=== PATIENT | male | born 1960 | race Caucasian/White ===

== ENCOUNTER 2016-12-19 15:52 | Inpatient (IN) | payer MEDICARE, OTHER ==
--- NOTE | 2016-12-19 15:54 | ED Physician Chart ---
Chief Complaint/HPI - Patient Information Date Seen:: 12/19/16 Time Seen:: 15:54 Chief Complaint:: agitation History of Present Illness:: 56-year-old male brought in by ambulance from care facility with acute, constant , worsening, severe, agitation with associated aggressive behavior towards staff 1.5 days. Limited history as patient has psychological disability and is uncooperative History of provided by EMS and EMS run sheet Historian:: EMS Review:: Nurse's Note Reviewed, EMS run form Reviewed Review of Systems - Review of Systems Other: Complete system review otherwise unremarkable except as noted in history of present illness. Past Medical History - Past Medical History Past Medical History: Other Family History: None Social History: Non Smoker, No Alcohol, No Drug Use, Care Facility Surgical History: None Psychiatricy History: Other (unspecified psychiatric disorder) Medication: Reviewed Family Medical History - Family Member Mother History Unknown: Yes Physical Exam - Physical Examination Other:: INITIAL VITAL SIGNS: Reviewed by me GENERAL: Alert and interactive. No acute distress HEAD: Head is normocephalic and atraumatic EYES: EOMI. PERRL. No scleral icterus. No conjunctival injection ENT: Moist mucous membranes. NECK: Supple. No masses. Full range of motion RESPIRATORY: No tachypnea. Clear breath sounds bilaterally. No wheezing, rales, or rhonchi CV: Regular rate and rhythm. No murmurs, rubs, or gallops ABDOMEN: Soft, non-distended, non-tender. No guarding. No rebound. No masses. EXTREMITIES: No deformity. No cyanosis. No edema. SKIN: Warm and dry. No obvious rashes. NEUROLOGIC: Alert and oriented. Face is symmetric. Speech is normal. Moves all extremities equally. Motor and sensory distally intact. Labs/Radiology/EKG Results - EKG Interpretations Comments:: 12-lead EKG Interpretation by Joseph Dean MD: Sinus bradycardia with ventricular rate of 56 beats per minute Normal axis Normal intervals No acute ST or T wave changes. No obvious STEMI ED Septic Shock - . Is Septic Shock (SBP<90, OR Lactate>4 mmol\L) present?: No Reassessment (Disposition) - Reassessment Reassessment:: The patient is medically cleared for admission to the geriatric psych unit. Reassessment Condition:: Unchanged - Diagnosis Diagnosis:: Acute psychosis, NOS - Patient Disposition Discharge/Transfer:: Acute Care w/in this hosp Admitted to:: [facility] Admitting Medical Physician:: Puja Yanes Admitting Psych Physician:: Les Recio Time:: 17:36 Condition at Disposition:: Improved ED Discharge Plan - Patient Disposition Admit/Discharge/Transfer: Other Care w/in this hosp Condition at Disposition: Stable
[2016-12-19 16:12] LABS: HEMATOCRIT 46.9 % (39.0-49.0); HEMOGLOBIN 15.3 gm/dL (13.2-17.3); MEAN CORPUSCULAR HEMOGLOBIN 34.6 pg (26.0-30.0); MEAN CORPUSCULAR HGB CONC 32.7 pg (28.0-36.0); MEAN PLATELET VOLUME 9.8 fl; PLATELET COUNT 183 Th/cmm (150-400); RED BLOOD COUNT 4.43 Mil/cmm (4.30-5.70); RED CELL DISTRIBUTION WIDTH 13.2 % (11.5-20.0); WHITE BLOOD COUNT 7.2 Th/cmm (4.8-10.8)
[2016-12-19 16:16] LABS: MEAN CELL VOLUME 105.8 fl (80-99)
[2016-12-19 16:30] LABS: ALB/GLOB RATIO 1.4 (1.0-1.8); ALKALINE PHOSPHATASE 81 U/L (34-104); ANION GAP 6.4 (7.0-16.0); BILIRUBIN,TOTAL 0.5 mg/dL (0.3-1.0); BUN - UREA NITROGEN 18 mg/dL (7-25); CALCIUM SERUM 9.5 mg/dL (8.6-10.3); CARBON DIOXIDE 26.7 mEq/L (21.0-31.0); CHLORIDE 109 mEq/L (98-107); CHOLESTEROL 144 mg/dL (<200); GLUCOSE 133 mg/dL (70-105); POTASSIUM SERUM 4.1 mEq/L (3.5-5.1); SGOT 14 U/L (13-39); SGPT/ALT 12 U/L (7-52); SODIUM SERUM 138 mEq/L (136-145); TRIGLYCERIDES 75 mg/dL (<150)
[2016-12-19 16:34] LABS: URINE BILIRUBIN NEGATIVE (NEGATIVE); URINE BLOOD NEGATIVE (NEGATIVE); URINE GLUCOSE (UA) NEGATIVE (NEGATIVE); URINE KETONE NEGATIVE (NEGATIVE); URINE PROTEIN NEGATIVE (NEGATIVE)
[2016-12-19 16:35] LABS: ANISOCYTOSIS 1+; BASOPHIL 1 % (0-3); EOSINOPHIL 7 % (0-5); NEUTROPHILS 43 % (40-80); PLATELET ESTIMATE ADEQUATE (NORMAL); PLATELET MORPHOLOGY NORMAL (NORMAL); TOTAL CELLS COUNTED 100
[2016-12-19 16:36] LABS: ACETAMINOPHEN < 10.0 ug/mL (10.0-30.0)
[2016-12-19 16:39] LABS: URINE BACTERIA NONE SEEN /hpf (NONE SEEN); URINE COLOR YELLOW; URINE EPITHELIAL CELLS NONE SEEN /lpf (FEW); URINE RBC NONE SEEN /hpf (0-5); URINE WBC NONE SEEN /hpf (0-5)
[2016-12-19 16:43] LABS: AMPHETAMINE URINE NEGATIVE (NEGATIVE); BARBITURATES URINE NEGATIVE (NEGATIVE); METHADONE URINE NEGATIVE (NEGATIVE)
[2016-12-19 18:21] VITALS: BP 151/76
[2016-12-19] MEDS ORDERED: Maalox 30 mL Cup PO PRN (19:36)
[2016-12-19] MEDS ORDERED: Magnesium Hydroxide (MOM) 30 mL UDC PO PRN (19:36)
[2016-12-20] MEDS: buPROPion XL 150 mg T 24 H PO SCH (08:40)
[2016-12-20] MEDS: Benztropine 1 MG TAB PO SCH (08:40)
[2016-12-20] MEDS: Multivitamin Tab PO SCH (08:40)
--- NOTE | 2016-12-20 21:17 | History & Physical ---
ADMIT DATE: 12/20/2016 HISTORY OF PRESENT ILLNESS: The patient is a 56-year-old male with long history of chronic smoking, psychosis, dementia, admitted to [facility] under Dr. Recio's service for the treatment. The patient denies any chest pain, shortness of breath, nausea, vomiting, fever, or chills. PAST MEDICAL HISTORY: COPD, psychosis, and dementia. PAST SURGICAL HISTORY: No recent surgery. ALLERGIES: None. MEDICATIONS: Follow admission reconciliation. SOCIAL HISTORY: Chronic smoker. No alcohol and no drug. FAMILY HISTORY: Noncontributory. REVIEW OF SYSTEMS: RENAL SYSTEM: No history of chronic renal disorder. CARDIOVASCULAR SYSTEM: No coronary artery disease. ENDOCRINE SYSTEM: No diabetes or thyroid problem. GASTROINTESTINAL SYSTEM: No upper or lower gastrointestinal bleed. NEUROLOGICAL: He has history of psychosis and dementia. MUSCULOSKELETAL SYSTEM: No muscular dystrophy. HEMATOLOGIC SYSTEM: No bleeding tendencies. RESPIRATORY SYSTEM: History of chronic smoking. GENITOURINARY: No dysuria. No hematuria. PHYSICAL EXAMINATION: GENERAL: He is awake, alert, and mildly confused. VITAL SIGNS: Temperature 97.7, heart rate 63, and blood pressure 105/63. HEENT: Normocephalic. Pupils are reactive and equal to light. Sclerae clear. NECK: Supple. Negative for lymphadenopathy, JVD, or bruit. CHEST: Bilaterally normal. No rales, rhonchi, or wheezing. HEART: S1, S2 normal. No murmur or gallop. ABDOMEN: Soft. Bowel sounds positive. EXTREMITIES: No edema. NEUROLOGIC: He is awake and alert, not fully oriented. No focal motor or sensory deficits. LABORATORY DATA: White blood 7.2, hemoglobin 15.3, hematocrit 46.9, and platelets 183,000. Sodium 138, potassium 4.1, BUN 18, and creatinine . ASSESSMENT: 1. Chronic obstructive pulmonary disease. 2. Dementia. 3. Psychosis. PLAN: The patient was admitted to the hospital under Dr. Recio's service. MEDICAL PROBLEMS TO BE ADDRESSED DURING HOSPITALIZATION: Psychosis and dementia. MEDICAL PROBLEMS TO BE ADDRESSED AT DISCHARGE: Cessation of smoking. The patient is medically stable for activity. Thank you Dr. Recio for asking me see your patient. JOB# [id number]
--- NOTE | 2016-12-21 04:43 | History & Physical ---
ADMIT DATE: 12/19/2016 Case was discussed with staff of the patient, reviewed records. IDENTIFYING INFORMATION: The patient is a 56-year-old male. CHIEF COMPLAINT: No answer. HISTORY OF PRESENT ILLNESS: The patient is referred from the rehabilitation where he has been staying because of agitation and psychosis. The patient himself was a poor historian, unable to tell me the date. He knew he was in the hospital. He is not sure why he is here. He believes he lives ____ care. He denies any current auditory or visual hallucination, any suicidal ideation. No homicidal ideation. He denies substance abuse. PAST PSYCHIATRIC HISTORY: The patient reports that he was hospitalized before, but he was unable to give me details. ALLERGIES: The patient has no known drug allergies. MEDICATIONS: He has been on Lexapro and Depakote and Wellbutrin. FAMILY AND SOCIAL HISTORY: The patient reports he is single, never , no children pain. He denies substance abuse problem. He believes he is here to be checked out. He denies family history psychotic disorder or substance abuse; however, he is a poor historian. MENTAL STATUS EXAMINATION: The patient is appropriately dressed, not very well groomed. His affect is flat. Thoughts are concrete. Speech is coherent, unable to tell me the date, where he is, why he is here. He reports no auditory or visual hallucinations or paranoia. He reports he sleeps well, eats well; however, he is not a reliable historian. He is unable to tell me the [facility] of [facility]. His long and short term memory is poor because of his psychosis. His insight and judgment is impaired. IMPRESSION: AXIS I: Mood disorder, not otherwise specified. MEDICAL DIAGNOSES: Deferred to the medical doctor. His assets, he wants to get help. Negative poor coping skills. INITIAL TREATMENT PLAN: At this point, the patient will be continued with medications. We will do group therapy, milieu therapy, and individual therapy. ESTIMATED LENGTH OF STAY: Three to seven days. DISCHARGE CRITERIA: Decrease in psychosis, agitation. After discharge, outpatient treatment. JOB# [id number]
[2016-12-21] MEDS: buPROPion XL 150 mg T 24 H PO SCH (08:38)
[2016-12-21] MEDS: Multivitamin Tab PO SCH (08:38)
[2016-12-21] MEDS: Benztropine 1 MG TAB PO SCH (08:38)
--- NOTE | 2016-12-21 12:38 | Progress Notes ---
DATE: 12/21/[address] Recio. Case was discussed with staff of the patient, reviewed records. The patient continues to be unpredictable, impulsive, internally preoccupied, pacing the unit. Continues to have poor insight. Unable to make safe plan for self-care. Sleeping well, eating well. No side effects with the medication, no sedation, no nausea. He was started on Risperdal yesterday and we will continue with the patient in group therapy, milieu therapy, adjust medication as needed. PSYCHIATRIC# [id number]
--- NOTE | 2016-12-21 16:44 | Internal Medicine Prog Note ---
Internal Medicine Subjective - Subjective Service Date: 12/21/16 Patient seen and examined:: without staff Patient is:: awake, verbal, interactive, talking Per staff patient has:: no adverse event (HE DENIES ANY PAIN OR SOB.) Internal Medicine Objective - Results Result Diagrams: 12/19/16 16:06 12/19/16 16:06 Recent Labs: Laboratory Last Values WBC 7.2 Th/cmm (4.8-10.8) 12/19/16 16:06 RBC 4.43 Mil/cmm (4.30-5.70) 12/19/16 16:06 Hgb 15.3 gm/dL (13.2-17.3) 12/19/16 16:06 Hct 46.9 % (39.0-49.0) 12/19/16 16:06 MCV 105.8 fl (80-99) H 12/19/16 16:06 MCH 34.6 pg (26.0-30.0) H 12/19/16 16:06 MCHC Differential 32.7 pg (28.0-36.0) 12/19/16 16:06 RDW 13.2 % (11.5-20.0) 12/19/16 16:06 Plt Count 183 Th/cmm (150-400) 12/19/16 16:06 MPV 9.8 fl 12/19/16 16:06 Neutrophils (Manual) 43 % (40-80) 12/19/16 16:06 Lymphocytes 40 % (20-50) 12/19/16 16:06 Monocytes 8 % (2-10) 12/19/16 16:06 Eosinophils 7 % (0-5) H 12/19/16 16:06 Basophils 1 % (0-3) 12/19/16 16:06 Atypical Lymphocytes 1 % 12/19/16 16:06 Platelet Estimate ADEQUATE (NORMAL) 12/19/16 16:06 Platelet Morphology NORMAL (NORMAL) 12/19/16 16:06 Anisocytosis 1+ 12/19/16 16:06 Macrocytosis 1+ 12/19/16 16:06 RBC Morph Micro Appear ABNORMAL (NORMAL) 12/19/16 16:06 Sodium 138 mEq/L (136-145) 12/19/16 16:06 Potassium 4.1 mEq/L (3.5-5.1) 12/19/16 16:06 Chloride 109 mEq/L (98-107) H 12/19/16 16:06 Carbon Dioxide 26.7 mEq/L (21.0-31.0) 12/19/16 16:06 Anion Gap 6.4 (7.0-16.0) L 12/19/16 16:06 BUN 18 mg/dL (7-25) 12/19/16 16:06 Creatinine 1.0 mg/dL (0.7-1.3) 12/19/16 16:06 Est GFR ( Amer) > 60.0 ml/min (>90) 12/19/16 16:06 Est GFR (Non-Af Amer) > 60.0 ml/min 12/19/16 16:06 BUN/Creatinine Ratio 18.0 12/19/16 16:06 Glucose 133 mg/dL (70-105) H 12/19/16 16:06 Calcium 9.5 mg/dL (8.6-10.3) 12/19/16 16:06 Total Bilirubin 0.5 mg/dL (0.3-1.0) 12/19/16 16:06 AST 14 U/L (13-39) 12/19/16 16:06 ALT 12 U/L (7-52) 12/19/16 16:06 Alkaline Phosphatase 81 U/L (34-104) 12/19/16 16:06 Total Protein 6.6 gm/dL (6.0-8.3) 12/19/16 16:06 Albumin 3.8 gm/dL (4.2-5.5) L 12/19/16 16:06 Globulin 2.8 gm/dL 12/19/16 16:06 Albumin/Globulin Ratio 1.4 (1.0-1.8) 12/19/16 16:06 Triglycerides 75 mg/dL (<150) 12/19/16 16:06 Cholesterol 144 mg/dL (<200) 12/19/16 16:06 LDL Cholesterol Direct 96 mg/dL (75-193) 12/19/16 16:06 HDL Cholesterol 42 mg/dL (23-92) 12/19/16 16:06 TSH 0.87 uIU/ml (0.34-5.60) 12/19/16 16:06 Urine Source CLEAN C 12/19/16 16:25 Urine Color YELLOW 12/19/16 16:25 Urine Clarity CLEAR (CLEAR) 12/19/16 16:25 Urine pH 7.0 (4.6 - 8.0) 12/19/16 16:25 Ur Specific [place] 1.010 (1.005-1.030) 12/19/16 16:25 Urine Protein NEGATIVE mg/dL (NEGATIVE) 12/19/16 16:25 Urine Glucose (UA) NEGATIVE mg/dL (NEGATIVE) 12/19/16 16:25 Urine Ketones NEGATIVE mg/dL (NEGATIVE) 12/19/16 16:25 Urine Blood NEGATIVE (NEGATIVE) 12/19/16 16:25 Urine Nitrate NEGATIVE (NEGATIVE) 12/19/16 16:25 Urine Bilirubin NEGATIVE (NEGATIVE) 12/19/16 16:25 Urine Urobilinogen 4.0 E.U./dL (0.2 - 1.0) H 12/19/16 16:25 Ur Leukocyte Esterase NEGATIVE (NEGATIVE) 12/19/16 16:25 Urine RBC NONE SEEN /hpf (0-5) 12/19/16 16:25 Urine WBC NONE SEEN /hpf (0-5) 12/19/16 16:25 Ur Epithelial Cells NONE SEEN /lpf (FEW) 12/19/16 16:25 Urine Bacteria NONE SEEN /hpf (NONE SEEN) 12/19/16 16:25 Salicylates < 25.0 mg/L (30.0-100.0) L 12/19/16 16:06 Urine Opiates Screen NEGATIVE (NEGATIVE) 12/19/16 16:25 Urine Methadone Screen NEGATIVE (NEGATIVE) 12/19/16 16:25 Acetaminophen < 10.0 ug/mL (10.0-30.0) L 12/19/16 16:06 Ur Barbiturates Screen NEGATIVE (NEGATIVE) 12/19/16 16:25 Ur Tricyclics Screen NEGATIVE (NEGATIVE) 12/19/16 16:25 Ur Phencyclidine Scrn NEGATIVE (NEGATIVE) 12/19/16 16:25 Amphetamines Screen NEGATIVE (NEGATIVE) 12/19/16 16:25 U Methamphetamines Scrn NEGATIVE (NEGATIVE) 12/19/16 16:25 U Benzodiazepines Scrn POSITIVE (NEGATIVE) H 12/19/16 16:25 U Cocaine Metab Screen NEGATIVE (NEGATIVE) 12/19/16 16:25 U Cannabinoids Screen NEGATIVE (NEGATIVE) 12/19/16 16:25 Ethyl Alcohol < 10 mg/dL (0-10) 12/19/16 16:06 - Physical Exam Vitals and I&O: Vital Signs Temp 97.8 F 12/21/16 06:41 Pulse 60 12/21/16 10:58 Resp 18 12/21/16 10:58 BP 100/62 12/20/16 20:21 Pulse Ox 94 12/21/16 06:41 Intake & Output 12/20/16 12/21/16 12/21/16 18:59 06:59 18:59 Intake Total 140 Balance 140 Intake: Oral 140 Other: # Voids 3 # Bowel Movements 0 Active Medications: Current Medications Acetaminophen (Tylenol) 650 mg PO Q4HR PRN PRN Reason: Mild Pain / Temp above 100 Stop: 02/17/17 19:35 Al Hydrox/Mg Hydrox/Simethicone (Maalox) 30 ml PO Q4HR PRN PRN Reason: GI DISTRESS Stop: 02/17/17 19:35 Benztropine Mesylate (Cogentin) 1 mg PO DAILY KASSY Stop: 02/18/17 08:59 Last Admin: 12/21/16 08:38 Dose: 1 mg Bupropion HCl (Wellbutrin Xl) 150 mg PO DAILY KASSY PRN Reason: Protocol Stop: 02/18/17 08:59 Last Admin: 12/21/16 08:38 Dose: 150 mg Divalproex Sodium (Depakote Dr) 500 mg PO BID KASSY PRN Reason: Protocol Stop: 02/18/17 08:59 Last Admin: 12/21/16 16:31 Dose: 500 mg Escitalopram Oxalate (Lexapro) 10 mg PO DAILY KASSY PRN Reason: Protocol Stop: 02/18/17 08:59 Last Admin: 12/21/16 08:38 Dose: 10 mg Lorazepam (Ativan) 0.5 mg PO Q4HR PRN; Protocol PRN Reason: Anxiety Stop: 01/18/17 19:35 Magnesium Hydroxide (Milk Of Magnesia) 30 ml PO HS PRN PRN Reason: Constipation Multivitamins/Vitamin C (Theragran) 1 tab PO DAILY KASSY Stop: 02/18/17 08:59 Last Admin: 12/21/16 08:38 Dose: 1 tab Risperidone (Risperdal) 0.25 mg PO BID KASSY PRN Reason: Protocol Stop: 02/18/17 16:59 Last Admin: 12/21/16 16:30 Dose: 0.25 mg Zolpidem Tartrate (Ambien) 5 mg PO HS PRN PRN Reason: Insomnia Stop: 02/17/17 19:35 General: alert HEENT: NC/AT, PERRLA, EOMI, anicteric sclerae, throat clear Neck: Supple, No JVD, No thyromegaly, +2 carotid pulse wo bruit, No LAD Lungs: CTAB Cardiovascular: RRR, Normal S1, Normal S2, without murmur Abdomen: soft, non-tender, non-distended Extremities: clear Neurological: no change, gait stable Internal Medicine Assmt/Plan - Assessment Assessment: 1.COPD 2.DEMENTIA - Plan Plan: CONTIMUE ON CURRENT MEDICATION AND DIET.
[2016-12-22] MEDS: buPROPion XL 150 mg T 24 H PO SCH (08:34)
[2016-12-22] MEDS: Benztropine 1 MG TAB PO SCH (08:34)
[2016-12-22] MEDS: Multivitamin Tab PO SCH (08:34)
--- NOTE | 2016-12-22 20:07 | Internal Medicine Prog Note ---
Internal Medicine Subjective - Subjective Service Date: 12/22/16 Patient seen and examined:: without staff Patient is:: awake, verbal, interactive, talking Per staff patient has:: no adverse event (HE DENIES ANY PAIN OR SOB.) Internal Medicine Objective - Results Result Diagrams: 12/19/16 16:06 12/19/16 16:06 Recent Labs: Laboratory Last Values WBC 7.2 Th/cmm (4.8-10.8) 12/19/16 16:06 RBC 4.43 Mil/cmm (4.30-5.70) 12/19/16 16:06 Hgb 15.3 gm/dL (13.2-17.3) 12/19/16 16:06 Hct 46.9 % (39.0-49.0) 12/19/16 16:06 MCV 105.8 fl (80-99) H 12/19/16 16:06 MCH 34.6 pg (26.0-30.0) H 12/19/16 16:06 MCHC Differential 32.7 pg (28.0-36.0) 12/19/16 16:06 RDW 13.2 % (11.5-20.0) 12/19/16 16:06 Plt Count 183 Th/cmm (150-400) 12/19/16 16:06 MPV 9.8 fl 12/19/16 16:06 Neutrophils (Manual) 43 % (40-80) 12/19/16 16:06 Lymphocytes 40 % (20-50) 12/19/16 16:06 Monocytes 8 % (2-10) 12/19/16 16:06 Eosinophils 7 % (0-5) H 12/19/16 16:06 Basophils 1 % (0-3) 12/19/16 16:06 Atypical Lymphocytes 1 % 12/19/16 16:06 Platelet Estimate ADEQUATE (NORMAL) 12/19/16 16:06 Platelet Morphology NORMAL (NORMAL) 12/19/16 16:06 Anisocytosis 1+ 12/19/16 16:06 Macrocytosis 1+ 12/19/16 16:06 RBC Morph Micro Appear ABNORMAL (NORMAL) 12/19/16 16:06 Sodium 138 mEq/L (136-145) 12/19/16 16:06 Potassium 4.1 mEq/L (3.5-5.1) 12/19/16 16:06 Chloride 109 mEq/L (98-107) H 12/19/16 16:06 Carbon Dioxide 26.7 mEq/L (21.0-31.0) 12/19/16 16:06 Anion Gap 6.4 (7.0-16.0) L 12/19/16 16:06 BUN 18 mg/dL (7-25) 12/19/16 16:06 Creatinine 1.0 mg/dL (0.7-1.3) 12/19/16 16:06 Est GFR ( Amer) > 60.0 ml/min (>90) 12/19/16 16:06 Est GFR (Non-Af Amer) > 60.0 ml/min 12/19/16 16:06 BUN/Creatinine Ratio 18.0 12/19/16 16:06 Glucose 133 mg/dL (70-105) H 12/19/16 16:06 Calcium 9.5 mg/dL (8.6-10.3) 12/19/16 16:06 Total Bilirubin 0.5 mg/dL (0.3-1.0) 12/19/16 16:06 AST 14 U/L (13-39) 12/19/16 16:06 ALT 12 U/L (7-52) 12/19/16 16:06 Alkaline Phosphatase 81 U/L (34-104) 12/19/16 16:06 Total Protein 6.6 gm/dL (6.0-8.3) 12/19/16 16:06 Albumin 3.8 gm/dL (4.2-5.5) L 12/19/16 16:06 Globulin 2.8 gm/dL 12/19/16 16:06 Albumin/Globulin Ratio 1.4 (1.0-1.8) 12/19/16 16:06 Triglycerides 75 mg/dL (<150) 12/19/16 16:06 Cholesterol 144 mg/dL (<200) 12/19/16 16:06 LDL Cholesterol Direct 96 mg/dL (75-193) 12/19/16 16:06 HDL Cholesterol 42 mg/dL (23-92) 12/19/16 16:06 TSH 0.87 uIU/ml (0.34-5.60) 12/19/16 16:06 Urine Source CLEAN C 12/19/16 16:25 Urine Color YELLOW 12/19/16 16:25 Urine Clarity CLEAR (CLEAR) 12/19/16 16:25 Urine pH 7.0 (4.6 - 8.0) 12/19/16 16:25 Ur Specific [place] 1.010 (1.005-1.030) 12/19/16 16:25 Urine Protein NEGATIVE mg/dL (NEGATIVE) 12/19/16 16:25 Urine Glucose (UA) NEGATIVE mg/dL (NEGATIVE) 12/19/16 16:25 Urine Ketones NEGATIVE mg/dL (NEGATIVE) 12/19/16 16:25 Urine Blood NEGATIVE (NEGATIVE) 12/19/16 16:25 Urine Nitrate NEGATIVE (NEGATIVE) 12/19/16 16:25 Urine Bilirubin NEGATIVE (NEGATIVE) 12/19/16 16:25 Urine Urobilinogen 4.0 E.U./dL (0.2 - 1.0) H 12/19/16 16:25 Ur Leukocyte Esterase NEGATIVE (NEGATIVE) 12/19/16 16:25 Urine RBC NONE SEEN /hpf (0-5) 12/19/16 16:25 Urine WBC NONE SEEN /hpf (0-5) 12/19/16 16:25 Ur Epithelial Cells NONE SEEN /lpf (FEW) 12/19/16 16:25 Urine Bacteria NONE SEEN /hpf (NONE SEEN) 12/19/16 16:25 Salicylates < 25.0 mg/L (30.0-100.0) L 12/19/16 16:06 Urine Opiates Screen NEGATIVE (NEGATIVE) 12/19/16 16:25 Urine Methadone Screen NEGATIVE (NEGATIVE) 12/19/16 16:25 Acetaminophen < 10.0 ug/mL (10.0-30.0) L 12/19/16 16:06 Ur Barbiturates Screen NEGATIVE (NEGATIVE) 12/19/16 16:25 Ur Tricyclics Screen NEGATIVE (NEGATIVE) 12/19/16 16:25 Ur Phencyclidine Scrn NEGATIVE (NEGATIVE) 12/19/16 16:25 Amphetamines Screen NEGATIVE (NEGATIVE) 12/19/16 16:25 U Methamphetamines Scrn NEGATIVE (NEGATIVE) 12/19/16 16:25 U Benzodiazepines Scrn POSITIVE (NEGATIVE) H 12/19/16 16:25 U Cocaine Metab Screen NEGATIVE (NEGATIVE) 12/19/16 16:25 U Cannabinoids Screen NEGATIVE (NEGATIVE) 12/19/16 16:25 Ethyl Alcohol < 10 mg/dL (0-10) 12/19/16 16:06 RPR NONREACTIVE (NONREACTIVE) 12/19/16 16:06 - Physical Exam Vitals and I&O: Vital Signs Temp 98 F 12/22/16 14:51 Pulse 53 12/22/16 14:51 Resp 20 12/22/16 14:51 BP 99/61 12/22/16 14:51 Pulse Ox 98 12/22/16 14:51 Intake & Output 12/22/16 12/22/16 12/23/16 06:59 18:59 06:59 Intake Total 380 1000 Balance 380 1000 Intake: Oral 380 1000 Other: # Voids 2 3 # Bowel Movements 1 1 Active Medications: Current Medications Acetaminophen (Tylenol) 650 mg PO Q4HR PRN PRN Reason: Mild Pain / Temp above 100 Stop: 02/17/17 19:35 Al Hydrox/Mg Hydrox/Simethicone (Maalox) 30 ml PO Q4HR PRN PRN Reason: GI DISTRESS Stop: 02/17/17 19:35 Benztropine Mesylate (Cogentin) 1 mg PO DAILY KASSY Stop: 02/18/17 08:59 Last Admin: 12/22/16 08:34 Dose: 1 mg Bupropion HCl (Wellbutrin Xl) 150 mg PO DAILY KASSY PRN Reason: Protocol Stop: 02/18/17 08:59 Last Admin: 12/22/16 08:34 Dose: 150 mg Divalproex Sodium (Depakote Dr) 500 mg PO BID KASSY PRN Reason: Protocol Stop: 02/18/17 08:59 Last Admin: 12/22/16 16:27 Dose: 500 mg Escitalopram Oxalate (Lexapro) 10 mg PO DAILY KASSY PRN Reason: Protocol Stop: 02/18/17 08:59 Last Admin: 12/22/16 08:34 Dose: 10 mg Lorazepam (Ativan) 0.5 mg PO Q4HR PRN; Protocol PRN Reason: Anxiety Stop: 01/18/17 19:35 Magnesium Hydroxide (Milk Of Magnesia) 30 ml PO HS PRN PRN Reason: Constipation Multivitamins/Vitamin C (Theragran) 1 tab PO DAILY KASSY Stop: 02/18/17 08:59 Last Admin: 12/22/16 08:34 Dose: 1 tab Risperidone (Risperdal) 0.25 mg PO BID KASSY PRN Reason: Protocol Stop: 02/18/17 16:59 Last Admin: 12/22/16 16:27 Dose: 0.25 mg Zolpidem Tartrate (Ambien) 5 mg PO HS PRN PRN Reason: Insomnia Stop: 02/17/17 19:35 General: alert HEENT: NC/AT, PERRLA, EOMI, anicteric sclerae, throat clear Neck: Supple, No JVD, No thyromegaly, +2 carotid pulse wo bruit, No LAD Lungs: CTAB Cardiovascular: RRR, Normal S1, Normal S2, without murmur Abdomen: soft, non-tender, non-distended Extremities: clear Neurological: no change, gait stable Internal Medicine Assmt/Plan - Assessment Assessment: 1.COPD 2.DEMENTIA - Plan Plan: CONTIMUE ON CURRENT MEDICATION AND DIET.
--- NOTE | 2016-12-23 00:20 | Progress Notes ---
DATE: 12/22/2016 Case was discussed with staff of the patient, reviewed records. The patient continues to be rambling, unpredictable, impulsive, unable to make safe plan for self-care, pacing the unit. He is sleeping well, eating well. No side effects with the medication, no sedation, no nausea, no extrapyramidal symptoms, and in general, he is responding better to redirection. I will continue with the patient in group therapy, milieu therapy, adjust the medication as needed. JOB# [id number]
[2016-12-23] MEDS: buPROPion XL 150 mg T 24 H PO SCH (08:37)
[2016-12-23] MEDS: Multivitamin Tab PO SCH (08:37)
[2016-12-23] MEDS: Benztropine 1 MG TAB PO SCH (08:38)
--- NOTE | 2016-12-23 19:21 | Internal Medicine Prog Note ---
Internal Medicine Subjective - Subjective Service Date: 12/23/16 Patient seen and examined:: without staff Patient is:: awake, verbal, interactive, talking Per staff patient has:: no adverse event (HE DENIES ANY PAIN OR SOB.) Internal Medicine Objective - Results Result Diagrams: 12/19/16 16:06 12/19/16 16:06 Recent Labs: Laboratory Last Values WBC 7.2 Th/cmm (4.8-10.8) 12/19/16 16:06 RBC 4.43 Mil/cmm (4.30-5.70) 12/19/16 16:06 Hgb 15.3 gm/dL (13.2-17.3) 12/19/16 16:06 Hct 46.9 % (39.0-49.0) 12/19/16 16:06 MCV 105.8 fl (80-99) H 12/19/16 16:06 MCH 34.6 pg (26.0-30.0) H 12/19/16 16:06 MCHC Differential 32.7 pg (28.0-36.0) 12/19/16 16:06 RDW 13.2 % (11.5-20.0) 12/19/16 16:06 Plt Count 183 Th/cmm (150-400) 12/19/16 16:06 MPV 9.8 fl 12/19/16 16:06 Neutrophils (Manual) 43 % (40-80) 12/19/16 16:06 Lymphocytes 40 % (20-50) 12/19/16 16:06 Monocytes 8 % (2-10) 12/19/16 16:06 Eosinophils 7 % (0-5) H 12/19/16 16:06 Basophils 1 % (0-3) 12/19/16 16:06 Atypical Lymphocytes 1 % 12/19/16 16:06 Platelet Estimate ADEQUATE (NORMAL) 12/19/16 16:06 Platelet Morphology NORMAL (NORMAL) 12/19/16 16:06 Anisocytosis 1+ 12/19/16 16:06 Macrocytosis 1+ 12/19/16 16:06 RBC Morph Micro Appear ABNORMAL (NORMAL) 12/19/16 16:06 Sodium 138 mEq/L (136-145) 12/19/16 16:06 Potassium 4.1 mEq/L (3.5-5.1) 12/19/16 16:06 Chloride 109 mEq/L (98-107) H 12/19/16 16:06 Carbon Dioxide 26.7 mEq/L (21.0-31.0) 12/19/16 16:06 Anion Gap 6.4 (7.0-16.0) L 12/19/16 16:06 BUN 18 mg/dL (7-25) 12/19/16 16:06 Creatinine 1.0 mg/dL (0.7-1.3) 12/19/16 16:06 Est GFR ( Amer) > 60.0 ml/min (>90) 12/19/16 16:06 Est GFR (Non-Af Amer) > 60.0 ml/min 12/19/16 16:06 BUN/Creatinine Ratio 18.0 12/19/16 16:06 Glucose 133 mg/dL (70-105) H 12/19/16 16:06 Calcium 9.5 mg/dL (8.6-10.3) 12/19/16 16:06 Total Bilirubin 0.5 mg/dL (0.3-1.0) 12/19/16 16:06 AST 14 U/L (13-39) 12/19/16 16:06 ALT 12 U/L (7-52) 12/19/16 16:06 Alkaline Phosphatase 81 U/L (34-104) 12/19/16 16:06 Total Protein 6.6 gm/dL (6.0-8.3) 12/19/16 16:06 Albumin 3.8 gm/dL (4.2-5.5) L 12/19/16 16:06 Globulin 2.8 gm/dL 12/19/16 16:06 Albumin/Globulin Ratio 1.4 (1.0-1.8) 12/19/16 16:06 Triglycerides 75 mg/dL (<150) 12/19/16 16:06 Cholesterol 144 mg/dL (<200) 12/19/16 16:06 LDL Cholesterol Direct 96 mg/dL (75-193) 12/19/16 16:06 HDL Cholesterol 42 mg/dL (23-92) 12/19/16 16:06 TSH 0.87 uIU/ml (0.34-5.60) 12/19/16 16:06 Urine Source CLEAN C 12/19/16 16:25 Urine Color YELLOW 12/19/16 16:25 Urine Clarity CLEAR (CLEAR) 12/19/16 16:25 Urine pH 7.0 (4.6 - 8.0) 12/19/16 16:25 Ur Specific [place] 1.010 (1.005-1.030) 12/19/16 16:25 Urine Protein NEGATIVE mg/dL (NEGATIVE) 12/19/16 16:25 Urine Glucose (UA) NEGATIVE mg/dL (NEGATIVE) 12/19/16 16:25 Urine Ketones NEGATIVE mg/dL (NEGATIVE) 12/19/16 16:25 Urine Blood NEGATIVE (NEGATIVE) 12/19/16 16:25 Urine Nitrate NEGATIVE (NEGATIVE) 12/19/16 16:25 Urine Bilirubin NEGATIVE (NEGATIVE) 12/19/16 16:25 Urine Urobilinogen 4.0 E.U./dL (0.2 - 1.0) H 12/19/16 16:25 Ur Leukocyte Esterase NEGATIVE (NEGATIVE) 12/19/16 16:25 Urine RBC NONE SEEN /hpf (0-5) 12/19/16 16:25 Urine WBC NONE SEEN /hpf (0-5) 12/19/16 16:25 Ur Epithelial Cells NONE SEEN /lpf (FEW) 12/19/16 16:25 Urine Bacteria NONE SEEN /hpf (NONE SEEN) 12/19/16 16:25 Salicylates < 25.0 mg/L (30.0-100.0) L 12/19/16 16:06 Urine Opiates Screen NEGATIVE (NEGATIVE) 12/19/16 16:25 Urine Methadone Screen NEGATIVE (NEGATIVE) 12/19/16 16:25 Acetaminophen < 10.0 ug/mL (10.0-30.0) L 12/19/16 16:06 Ur Barbiturates Screen NEGATIVE (NEGATIVE) 12/19/16 16:25 Ur Tricyclics Screen NEGATIVE (NEGATIVE) 12/19/16 16:25 Ur Phencyclidine Scrn NEGATIVE (NEGATIVE) 12/19/16 16:25 Amphetamines Screen NEGATIVE (NEGATIVE) 12/19/16 16:25 U Methamphetamines Scrn NEGATIVE (NEGATIVE) 12/19/16 16:25 U Benzodiazepines Scrn POSITIVE (NEGATIVE) H 12/19/16 16:25 U Cocaine Metab Screen NEGATIVE (NEGATIVE) 12/19/16 16:25 U Cannabinoids Screen NEGATIVE (NEGATIVE) 12/19/16 16:25 Ethyl Alcohol < 10 mg/dL (0-10) 12/19/16 16:06 RPR NONREACTIVE (NONREACTIVE) 12/19/16 16:06 - Physical Exam Vitals and I&O: Vital Signs Temp 97.9 F 12/23/16 14:00 Pulse 54 12/23/16 14:00 Resp 18 12/23/16 14:00 BP 110/53 12/23/16 14:00 Pulse Ox 95 12/23/16 14:00 Intake & Output 12/23/16 12/23/16 12/24/16 06:59 18:59 06:59 Intake Total 480 1200 Balance 480 1200 Weight (lbs) 74.933 kg Intake: Oral 480 1200 Other: # Voids 3 # Bowel Movements 0 1 Active Medications: Current Medications Acetaminophen (Tylenol) 650 mg PO Q4HR PRN PRN Reason: Mild Pain / Temp above 100 Stop: 02/17/17 19:35 Al Hydrox/Mg Hydrox/Simethicone (Maalox) 30 ml PO Q4HR PRN PRN Reason: GI DISTRESS Stop: 02/17/17 19:35 Benztropine Mesylate (Cogentin) 1 mg PO DAILY KASSY Stop: 02/18/17 08:59 Last Admin: 12/23/16 08:38 Dose: 1 mg Bupropion HCl (Wellbutrin Xl) 150 mg PO DAILY KASSY PRN Reason: Protocol Stop: 02/18/17 08:59 Last Admin: 12/23/16 08:37 Dose: 150 mg Divalproex Sodium (Depakote Dr) 500 mg PO BID KASSY PRN Reason: Protocol Stop: 02/18/17 08:59 Last Admin: 12/23/16 17:02 Dose: 500 mg Escitalopram Oxalate (Lexapro) 10 mg PO DAILY KASSY PRN Reason: Protocol Stop: 02/18/17 08:59 Last Admin: 12/23/16 08:37 Dose: 10 mg Lorazepam (Ativan) 0.5 mg PO Q4HR PRN; Protocol PRN Reason: Anxiety Stop: 01/18/17 19:35 Magnesium Hydroxide (Milk Of Magnesia) 30 ml PO HS PRN PRN Reason: Constipation Multivitamins/Vitamin C (Theragran) 1 tab PO DAILY KASSY Stop: 02/18/17 08:59 Last Admin: 12/23/16 08:37 Dose: 1 tab Risperidone (Risperdal) 0.25 mg PO BID KASSY PRN Reason: Protocol Stop: 02/18/17 16:59 Last Admin: 12/23/16 17:01 Dose: 0.25 mg Zolpidem Tartrate (Ambien) 5 mg PO HS PRN PRN Reason: Insomnia Stop: 02/17/17 19:35 General: alert HEENT: NC/AT, PERRLA, EOMI, anicteric sclerae, throat clear Neck: Supple, No JVD, No thyromegaly, +2 carotid pulse wo bruit, No LAD Lungs: CTAB Cardiovascular: RRR, Normal S1, Normal S2, without murmur Abdomen: soft, non-tender, non-distended Extremities: clear Neurological: no change, gait stable Internal Medicine Assmt/Plan - Assessment Assessment: 1.COPD 2.DEMENTIA - Plan Plan: CONTIMUE ON CURRENT MEDICATION AND DIET. Nutritional Asmnt/Malnutr-PDOC - Dietary Evaluation Malnutrition Findings (Please click <Entered> for more info): Nutritional Asmnt/Malnutrition Start: 12/23/16 10: 48 Text: Status: Complete Freq: Document 12/23/16 10:54 GSCHARITY (Rec: 12/23/16 11:01 CODY [id number]) Nutritional Asmnt/Malnutrition Patient General Information Nutritional Screening Diagnosis Diagnosis Mood disorder NOS Pertinent Medical Hx/Surgical Hx COPD, psychosis, dementia, chronic smoking Subjective Information 56 year old male. Pt is very polite and pleasant. Greeted pt in hallway, walked with pt to room and obtained CBW 165. 2lb with bedscal properly calibrated. Pt is unsure of UBW, stated he has always been this size. Avg PO intake 100% of meals since adm, meeting nutritional needs. Pt stated " everything is fine, I am eating good." Pt denied any nutritional concerns at this time. Teeth intact, denied difficulties chewing. Current Diet Order/ Nutrition Support Regular Pertinent Medications MOM, Theragran Pertinent Labs Reviewed. Nutritional Hx/Data Height 1.8 m Height (Calculated Centimeters) 180.3 Current Weight (lbs) 74.933 kg Weight (Calculated Kilograms) 74.9 Weight (Calculated Grams) 88521.5 [place] Body Weight 172 Recent Weight Change No Weight Status Approriate GI Symptoms Food Allergies No Skin Integrity/Comment: Rajinder 23. Skin intact. Current %PO Good (75-100%) Estimated Nutritional Goals Calories/Kcals/Kg CBW 165.2lb/74.9kg Kcals Calculated 1873-2247kcal (25-30kcal/kg) Protein Calculated 75g (1g/kg) Fluid: ml 1873-2247ml (1ml/kcal) Nutritional Problem 1. Problem Problem No nutritional problem at this time. Intervention/Recommendation Comments 1. Continue with current diet order. Avg PO intake is adequate. Expected Outcomes/Goals Expected Outcomes/Goals 1. PO intake continue to meet at least 75% of estimated nutritional needs.
--- NOTE | 2016-12-23 22:56 | Progress Notes ---
DATE: 12/23/2016 Case was discussed with staff of the patient, reviewed records. The patient has been still wandering the unit, very poor interaction with others. He does sometimes make sense when he talks. He is still unpredictable, impulsive, needing redirection, sleeping better, eating better. No side effects with the medication, no sedation, no nausea, and no extrapyramidal symptoms. He is sleeping better, eating better and he tolerates the medication. He is on Depakote, bupropion, Lexapro and Risperdal was added 0.25 mg twice a day with no side effects. We will continue the patient in group therapy, milieu therapy, and adjust the medication as needed. [facility]# [id number]
[2016-12-24] MEDS: buPROPion XL 150 mg T 24 H PO SCH (08:29)
[2016-12-24] MEDS: Multivitamin Tab PO SCH (08:30)
[2016-12-24] MEDS: Benztropine 1 MG TAB PO SCH (08:30)
--- NOTE | 2016-12-24 17:23 | Internal Medicine Prog Note ---
Internal Medicine Subjective - Subjective Service Date: 12/24/16 Patient seen and examined:: without staff Patient is:: awake, verbal, interactive, talking Per staff patient has:: no adverse event (HE DENIES ANY PAIN OR SOB.) Internal Medicine Objective - Results Result Diagrams: 12/19/16 16:06 12/19/16 16:06 Recent Labs: Laboratory Last Values WBC 7.2 Th/cmm (4.8-10.8) 12/19/16 16:06 RBC 4.43 Mil/cmm (4.30-5.70) 12/19/16 16:06 Hgb 15.3 gm/dL (13.2-17.3) 12/19/16 16:06 Hct 46.9 % (39.0-49.0) 12/19/16 16:06 MCV 105.8 fl (80-99) H 12/19/16 16:06 MCH 34.6 pg (26.0-30.0) H 12/19/16 16:06 MCHC Differential 32.7 pg (28.0-36.0) 12/19/16 16:06 RDW 13.2 % (11.5-20.0) 12/19/16 16:06 Plt Count 183 Th/cmm (150-400) 12/19/16 16:06 MPV 9.8 fl 12/19/16 16:06 Neutrophils (Manual) 43 % (40-80) 12/19/16 16:06 Lymphocytes 40 % (20-50) 12/19/16 16:06 Monocytes 8 % (2-10) 12/19/16 16:06 Eosinophils 7 % (0-5) H 12/19/16 16:06 Basophils 1 % (0-3) 12/19/16 16:06 Atypical Lymphocytes 1 % 12/19/16 16:06 Platelet Estimate ADEQUATE (NORMAL) 12/19/16 16:06 Platelet Morphology NORMAL (NORMAL) 12/19/16 16:06 Anisocytosis 1+ 12/19/16 16:06 Macrocytosis 1+ 12/19/16 16:06 RBC Morph Micro Appear ABNORMAL (NORMAL) 12/19/16 16:06 Sodium 138 mEq/L (136-145) 12/19/16 16:06 Potassium 4.1 mEq/L (3.5-5.1) 12/19/16 16:06 Chloride 109 mEq/L (98-107) H 12/19/16 16:06 Carbon Dioxide 26.7 mEq/L (21.0-31.0) 12/19/16 16:06 Anion Gap 6.4 (7.0-16.0) L 12/19/16 16:06 BUN 18 mg/dL (7-25) 12/19/16 16:06 Creatinine 1.0 mg/dL (0.7-1.3) 12/19/16 16:06 Est GFR ( Amer) > 60.0 ml/min (>90) 12/19/16 16:06 Est GFR (Non-Af Amer) > 60.0 ml/min 12/19/16 16:06 BUN/Creatinine Ratio 18.0 12/19/16 16:06 Glucose 133 mg/dL (70-105) H 12/19/16 16:06 Calcium 9.5 mg/dL (8.6-10.3) 12/19/16 16:06 Total Bilirubin 0.5 mg/dL (0.3-1.0) 12/19/16 16:06 AST 14 U/L (13-39) 12/19/16 16:06 ALT 12 U/L (7-52) 12/19/16 16:06 Alkaline Phosphatase 81 U/L (34-104) 12/19/16 16:06 Total Protein 6.6 gm/dL (6.0-8.3) 12/19/16 16:06 Albumin 3.8 gm/dL (4.2-5.5) L 12/19/16 16:06 Globulin 2.8 gm/dL 12/19/16 16:06 Albumin/Globulin Ratio 1.4 (1.0-1.8) 12/19/16 16:06 Triglycerides 75 mg/dL (<150) 12/19/16 16:06 Cholesterol 144 mg/dL (<200) 12/19/16 16:06 LDL Cholesterol Direct 96 mg/dL (75-193) 12/19/16 16:06 HDL Cholesterol 42 mg/dL (23-92) 12/19/16 16:06 TSH 0.87 uIU/ml (0.34-5.60) 12/19/16 16:06 Urine Source CLEAN C 12/19/16 16:25 Urine Color YELLOW 12/19/16 16:25 Urine Clarity CLEAR (CLEAR) 12/19/16 16:25 Urine pH 7.0 (4.6 - 8.0) 12/19/16 16:25 Ur Specific [place] 1.010 (1.005-1.030) 12/19/16 16:25 Urine Protein NEGATIVE mg/dL (NEGATIVE) 12/19/16 16:25 Urine Glucose (UA) NEGATIVE mg/dL (NEGATIVE) 12/19/16 16:25 Urine Ketones NEGATIVE mg/dL (NEGATIVE) 12/19/16 16:25 Urine Blood NEGATIVE (NEGATIVE) 12/19/16 16:25 Urine Nitrate NEGATIVE (NEGATIVE) 12/19/16 16:25 Urine Bilirubin NEGATIVE (NEGATIVE) 12/19/16 16:25 Urine Urobilinogen 4.0 E.U./dL (0.2 - 1.0) H 12/19/16 16:25 Ur Leukocyte Esterase NEGATIVE (NEGATIVE) 12/19/16 16:25 Urine RBC NONE SEEN /hpf (0-5) 12/19/16 16:25 Urine WBC NONE SEEN /hpf (0-5) 12/19/16 16:25 Ur Epithelial Cells NONE SEEN /lpf (FEW) 12/19/16 16:25 Urine Bacteria NONE SEEN /hpf (NONE SEEN) 12/19/16 16:25 Salicylates < 25.0 mg/L (30.0-100.0) L 12/19/16 16:06 Urine Opiates Screen NEGATIVE (NEGATIVE) 12/19/16 16:25 Urine Methadone Screen NEGATIVE (NEGATIVE) 12/19/16 16:25 Acetaminophen < 10.0 ug/mL (10.0-30.0) L 12/19/16 16:06 Ur Barbiturates Screen NEGATIVE (NEGATIVE) 12/19/16 16:25 Ur Tricyclics Screen NEGATIVE (NEGATIVE) 12/19/16 16:25 Ur Phencyclidine Scrn NEGATIVE (NEGATIVE) 12/19/16 16:25 Amphetamines Screen NEGATIVE (NEGATIVE) 12/19/16 16:25 U Methamphetamines Scrn NEGATIVE (NEGATIVE) 12/19/16 16:25 U Benzodiazepines Scrn POSITIVE (NEGATIVE) H 12/19/16 16:25 U Cocaine Metab Screen NEGATIVE (NEGATIVE) 12/19/16 16:25 U Cannabinoids Screen NEGATIVE (NEGATIVE) 12/19/16 16:25 Ethyl Alcohol < 10 mg/dL (0-10) 12/19/16 16:06 RPR NONREACTIVE (NONREACTIVE) 12/19/16 16:06 - Physical Exam Vitals and I&O: Vital Signs Temp 97.9 F 12/24/16 06:09 Pulse 52 12/24/16 06:09 Resp 18 12/24/16 06:09 BP 105/65 12/24/16 06:09 Pulse Ox 97 12/24/16 06:09 Intake & Output 12/23/16 12/24/16 12/24/16 18:59 06:59 18:59 Intake Total 1200 120 Balance 1200 120 Weight (lbs) 74.933 kg Intake: Oral 1200 120 Other: # Voids 2 # Bowel Movements 1 0 Active Medications: Current Medications Acetaminophen (Tylenol) 650 mg PO Q4HR PRN PRN Reason: Mild Pain / Temp above 100 Stop: 02/17/17 19:35 Al Hydrox/Mg Hydrox/Simethicone (Maalox) 30 ml PO Q4HR PRN PRN Reason: GI DISTRESS Stop: 02/17/17 19:35 Benztropine Mesylate (Cogentin) 1 mg PO DAILY KASSY Stop: 02/18/17 08:59 Last Admin: 12/24/16 08:30 Dose: 1 mg Bupropion HCl (Wellbutrin Xl) 150 mg PO DAILY KASSY PRN Reason: Protocol Stop: 02/18/17 08:59 Last Admin: 12/24/16 08:29 Dose: 150 mg Divalproex Sodium (Depakote Dr) 500 mg PO BID KASSY PRN Reason: Protocol Stop: 02/18/17 08:59 Last Admin: 12/24/16 08:30 Dose: 500 mg Escitalopram Oxalate (Lexapro) 10 mg PO DAILY KASSY PRN Reason: Protocol Stop: 02/18/17 08:59 Last Admin: 12/24/16 08:30 Dose: 10 mg Lorazepam (Ativan) 0.5 mg PO Q4HR PRN; Protocol PRN Reason: Anxiety Stop: 01/18/17 19:35 Magnesium Hydroxide (Milk Of Magnesia) 30 ml PO HS PRN PRN Reason: Constipation Multivitamins/Vitamin C (Theragran) 1 tab PO DAILY KASSY Stop: 02/18/17 08:59 Last Admin: 12/24/16 08:30 Dose: 1 tab Risperidone (Risperdal) 0.25 mg PO BID KASSY PRN Reason: Protocol Stop: 02/18/17 16:59 Last Admin: 12/24/16 08:30 Dose: 0.25 mg Zolpidem Tartrate (Ambien) 5 mg PO HS PRN PRN Reason: Insomnia Stop: 02/17/17 19:35 General: alert HEENT: NC/AT, PERRLA, EOMI, anicteric sclerae, throat clear Neck: Supple, No JVD, No thyromegaly, +2 carotid pulse wo bruit, No LAD Lungs: CTAB Cardiovascular: RRR, Normal S1, Normal S2, without murmur Abdomen: soft, non-tender, non-distended Extremities: clear Neurological: no change, gait stable Internal Medicine Assmt/Plan - Assessment Assessment: 1.COPD 2.DEMENTIA - Plan Plan: CONTIMUE ON CURRENT MEDICATION AND DIET. Nutritional Asmnt/Malnutr-PDOC - Dietary Evaluation Malnutrition Findings (Please click <Entered> for more info): Nutritional Asmnt/Malnutrition Start: 12/23/16 10: 48 Text: Status: Complete Freq: Document 12/23/16 10:54 GSCHARITY (Rec: 12/23/16 11:01 CODY [id number]) Nutritional Asmnt/Malnutrition Patient General Information Nutritional Screening Diagnosis Diagnosis Mood disorder NOS Pertinent Medical Hx/Surgical Hx COPD, psychosis, dementia, chronic smoking Subjective Information 56 year old male. Pt is very polite and pleasant. Greeted pt in hallway, walked with pt to room and obtained CBW 165. 2lb with bedscal properly calibrated. Pt is unsure of UBW, stated he has always been this size. Avg PO intake 100% of meals since adm, meeting nutritional needs. Pt stated " everything is fine, I am eating good." Pt denied any nutritional concerns at this time. Teeth intact, denied difficulties chewing. Current Diet Order/ Nutrition Support Regular Pertinent Medications MOM, Theragran Pertinent Labs Reviewed. Nutritional Hx/Data Height 1.8 m Height (Calculated Centimeters) 180.3 Current Weight (lbs) 74.933 kg Weight (Calculated Kilograms) 74.9 Weight (Calculated Grams) 72097.5 [place] Body Weight 172 Recent Weight Change No Weight Status Approriate GI Symptoms Food Allergies No Skin Integrity/Comment: Rajinder 23. Skin intact. Current %PO Good (75-100%) Estimated Nutritional Goals Calories/Kcals/Kg CBW 165.2lb/74.9kg Kcals Calculated 1873-2247kcal (25-30kcal/kg) Protein Calculated 75g (1g/kg) Fluid: ml 1873-2247ml (1ml/kcal) Nutritional Problem 1. Problem Problem No nutritional problem at this time. Intervention/Recommendation Comments 1. Continue with current diet order. Avg PO intake is adequate. Expected Outcomes/Goals Expected Outcomes/Goals 1. PO intake continue to meet at least 75% of estimated nutritional needs.
--- NOTE | 2016-12-25 02:28 | Progress Notes ---
DATE: 12/24/2016 Case was discussed with staff of the patient, reviewed records. The patient continues to be unpredictable, impulsive, pacing the unit. He is sleeping better, eating better. He is compliant with the medication, no side effects, no sedation, no nausea, and no extrapyramidal symptoms. We will continue the patient in group therapy, milieu therapy, adjust medication as needed. JOB# [id number]
[2016-12-25] MEDS: Multivitamin Tab PO SCH (09:08)
[2016-12-25] MEDS: Benztropine 1 MG TAB PO SCH (09:08)
[2016-12-25] MEDS: buPROPion XL 150 mg T 24 H PO SCH (09:08)
--- NOTE | 2016-12-26 03:44 | Progress Notes ---
DATE: 12/25/[address] Recio. Case was discussed with staff of the patient, reviewed records. The patient is reported by the staff to be preoccupied with walker, pacing the unit. He seems to be obsessive with work according the staff but he denies when I asked him, he is unpredictable, impulsive, needing redirection. He is confused. I have been filling his Lexapro dose to 15 mg daily to help with his ___ and so far no side effects with the medication. No sedation, no nausea, no extrapyramidal symptoms. We will continue to work with the patient in group therapy, milieu therapy, adjust medication as needed. JOB# [id number]
[2016-12-26] MEDS: Benztropine 1 MG TAB PO SCH (08:39)
[2016-12-26] MEDS: Multivitamin Tab PO SCH (08:39)
[2016-12-26] MEDS: buPROPion XL 150 mg T 24 H PO SCH (08:40)
--- NOTE | 2016-12-26 10:59 | Progress Notes ---
DATE: 12/25/2016 PSYCHIATRIC PROGRESS NOTE SUBJECTIVE: Staff was spoken to. The patient is interviewed. Mood is noted to be irritable. Affect is constricted. The patient is still pacing most of the time on the unit. Insight and judgment are noted to be still impaired. Impulse control seems to be poor. The patient has been pacing and patient is getting easily upset. No side effects to the medications are noted. The patient has been having difficult time to cope with the stress. The patient's sleep is noted to be poor. Appetite is noted to be fair. The patient is having paranoia, but denies any command hallucinations. The patient is getting easily frustrated. Mood swings are still a problem. The patient has been on bupropion 150 mg once a day and valproic acid 500 mg twice a day and Lexapro 15 mg even with all the medication. The patient has been having difficult time to cope with the stress. ASSESSMENT: The patient is still depressed. PLAN: To continue the patient with the supportive therapy. I encouraged the patient to verbalize the concerns rather than to act out. [facility]# [id number]
--- NOTE | 2016-12-26 17:21 | General Progress Note ---
Subjective - Review of Systems Service Date: 12/26/16 Subjective: sitting in chair comfortably no distress Objective - Results Result Diagrams: 12/19/16 16:06 12/19/16 16:06 Recent Labs: Laboratory Last Values WBC 7.2 Th/cmm (4.8-10.8) 12/19/16 16:06 RBC 4.43 Mil/cmm (4.30-5.70) 12/19/16 16:06 Hgb 15.3 gm/dL (13.2-17.3) 12/19/16 16:06 Hct 46.9 % (39.0-49.0) 12/19/16 16:06 MCV 105.8 fl (80-99) H 12/19/16 16:06 MCH 34.6 pg (26.0-30.0) H 12/19/16 16:06 MCHC Differential 32.7 pg (28.0-36.0) 12/19/16 16:06 RDW 13.2 % (11.5-20.0) 12/19/16 16:06 Plt Count 183 Th/cmm (150-400) 12/19/16 16:06 MPV 9.8 fl 12/19/16 16:06 Neutrophils (Manual) 43 % (40-80) 12/19/16 16:06 Lymphocytes 40 % (20-50) 12/19/16 16:06 Monocytes 8 % (2-10) 12/19/16 16:06 Eosinophils 7 % (0-5) H 12/19/16 16:06 Basophils 1 % (0-3) 12/19/16 16:06 Atypical Lymphocytes 1 % 12/19/16 16:06 Platelet Estimate ADEQUATE (NORMAL) 12/19/16 16:06 Platelet Morphology NORMAL (NORMAL) 12/19/16 16:06 Anisocytosis 1+ 12/19/16 16:06 Macrocytosis 1+ 12/19/16 16:06 RBC Morph Micro Appear ABNORMAL (NORMAL) 12/19/16 16:06 Sodium 138 mEq/L (136-145) 12/19/16 16:06 Potassium 4.1 mEq/L (3.5-5.1) 12/19/16 16:06 Chloride 109 mEq/L (98-107) H 12/19/16 16:06 Carbon Dioxide 26.7 mEq/L (21.0-31.0) 12/19/16 16:06 Anion Gap 6.4 (7.0-16.0) L 12/19/16 16:06 BUN 18 mg/dL (7-25) 12/19/16 16:06 Creatinine 1.0 mg/dL (0.7-1.3) 12/19/16 16:06 Est GFR ( Amer) > 60.0 ml/min (>90) 12/19/16 16:06 Est GFR (Non-Af Amer) > 60.0 ml/min 12/19/16 16:06 BUN/Creatinine Ratio 18.0 12/19/16 16:06 Glucose 133 mg/dL (70-105) H 12/19/16 16:06 Calcium 9.5 mg/dL (8.6-10.3) 12/19/16 16:06 Total Bilirubin 0.5 mg/dL (0.3-1.0) 12/19/16 16:06 AST 14 U/L (13-39) 12/19/16 16:06 ALT 12 U/L (7-52) 12/19/16 16:06 Alkaline Phosphatase 81 U/L (34-104) 12/19/16 16:06 Total Protein 6.6 gm/dL (6.0-8.3) 12/19/16 16:06 Albumin 3.8 gm/dL (4.2-5.5) L 12/19/16 16:06 Globulin 2.8 gm/dL 12/19/16 16:06 Albumin/Globulin Ratio 1.4 (1.0-1.8) 12/19/16 16:06 Triglycerides 75 mg/dL (<150) 12/19/16 16:06 Cholesterol 144 mg/dL (<200) 12/19/16 16:06 LDL Cholesterol Direct 96 mg/dL (75-193) 12/19/16 16:06 HDL Cholesterol 42 mg/dL (23-92) 12/19/16 16:06 TSH 0.87 uIU/ml (0.34-5.60) 12/19/16 16:06 Urine Source CLEAN C 12/19/16 16:25 Urine Color YELLOW 12/19/16 16:25 Urine Clarity CLEAR (CLEAR) 12/19/16 16:25 Urine pH 7.0 (4.6 - 8.0) 12/19/16 16:25 Ur Specific [place] 1.010 (1.005-1.030) 12/19/16 16:25 Urine Protein NEGATIVE mg/dL (NEGATIVE) 12/19/16 16:25 Urine Glucose (UA) NEGATIVE mg/dL (NEGATIVE) 12/19/16 16:25 Urine Ketones NEGATIVE mg/dL (NEGATIVE) 12/19/16 16:25 Urine Blood NEGATIVE (NEGATIVE) 12/19/16 16:25 Urine Nitrate NEGATIVE (NEGATIVE) 12/19/16 16:25 Urine Bilirubin NEGATIVE (NEGATIVE) 12/19/16 16:25 Urine Urobilinogen 4.0 E.U./dL (0.2 - 1.0) H 12/19/16 16:25 Ur Leukocyte Esterase NEGATIVE (NEGATIVE) 12/19/16 16:25 Urine RBC NONE SEEN /hpf (0-5) 12/19/16 16:25 Urine WBC NONE SEEN /hpf (0-5) 12/19/16 16:25 Ur Epithelial Cells NONE SEEN /lpf (FEW) 12/19/16 16:25 Urine Bacteria NONE SEEN /hpf (NONE SEEN) 12/19/16 16:25 Salicylates < 25.0 mg/L (30.0-100.0) L 12/19/16 16:06 Urine Opiates Screen NEGATIVE (NEGATIVE) 12/19/16 16:25 Urine Methadone Screen NEGATIVE (NEGATIVE) 12/19/16 16:25 Acetaminophen < 10.0 ug/mL (10.0-30.0) L 12/19/16 16:06 Ur Barbiturates Screen NEGATIVE (NEGATIVE) 12/19/16 16:25 Ur Tricyclics Screen NEGATIVE (NEGATIVE) 12/19/16 16:25 Ur Phencyclidine Scrn NEGATIVE (NEGATIVE) 12/19/16 16:25 Amphetamines Screen NEGATIVE (NEGATIVE) 12/19/16 16:25 U Methamphetamines Scrn NEGATIVE (NEGATIVE) 12/19/16 16:25 U Benzodiazepines Scrn POSITIVE (NEGATIVE) H 12/19/16 16:25 U Cocaine Metab Screen NEGATIVE (NEGATIVE) 12/19/16 16:25 U Cannabinoids Screen NEGATIVE (NEGATIVE) 12/19/16 16:25 Ethyl Alcohol < 10 mg/dL (0-10) 12/19/16 16:06 RPR NONREACTIVE (NONREACTIVE) 12/19/16 16:06 - Physical Exam Vitals and I&O: Vital Signs Temp 97.6 F 12/26/16 15:35 Pulse 68 12/26/16 15:35 Resp 18 12/26/16 15:35 BP 109/60 12/26/16 15:35 Pulse Ox 97 12/26/16 15:35 Intake & Output 12/25/16 12/26/16 12/26/16 18:59 06:59 18:59 Intake Total 1000 120 Balance 1000 120 Intake: Oral 1000 120 Other: # Voids 3 3 # Bowel Movements 1 Active Medications: Current Medications Acetaminophen (Tylenol) 650 mg PO Q4HR PRN PRN Reason: Mild Pain / Temp above 100 Stop: 02/17/17 19:35 Al Hydrox/Mg Hydrox/Simethicone (Maalox) 30 ml PO Q4HR PRN PRN Reason: GI DISTRESS Stop: 02/17/17 19:35 Benztropine Mesylate (Cogentin) 1 mg PO DAILY KASSY Stop: 02/18/17 08:59 Last Admin: 12/26/16 08:39 Dose: 1 mg Bupropion HCl (Wellbutrin Xl) 150 mg PO DAILY KASSY PRN Reason: Protocol Stop: 02/18/17 08:59 Last Admin: 12/26/16 08:40 Dose: 150 mg Divalproex Sodium (Depakote Dr) 500 mg PO BID KASSY PRN Reason: Protocol Stop: 02/18/17 08:59 Last Admin: 12/26/16 16:38 Dose: 500 mg Escitalopram Oxalate (Lexapro) 10 mg PO DAILY KASSY PRN Reason: Protocol Stop: 02/23/17 11:34 Lorazepam (Ativan) 0.5 mg PO Q4HR PRN; Protocol PRN Reason: Anxiety Stop: 01/18/17 19:35 Magnesium Hydroxide (Milk Of Magnesia) 30 ml PO HS PRN PRN Reason: Constipation Multivitamins/Vitamin C (Theragran) 1 tab PO DAILY KASSY Stop: 02/18/17 08:59 Last Admin: 12/26/16 08:39 Dose: 1 tab Risperidone (Risperdal) 0.5 mg PO BID KASSY PRN Reason: Protocol Stop: 02/18/17 16:59 Last Admin: 12/26/16 16:39 Dose: 0.5 mg Zolpidem Tartrate (Ambien) 5 mg PO HS PRN PRN Reason: Insomnia Stop: 02/17/17 19:35 General: Alert, No acute distress Neck: Supple, JVD Cardiovascular: Regular rate, Normal S1, Normal S2 Lungs: Clear to auscultation Abdomen: Bowel sounds, Soft Assessment/Plan - Assessment Assessment: 1.COPD 2.DEMENTIA - Plan Plan: cont current treatment Nutritional Asmnt/Malnutr-PDOC - Dietary Evaluation Malnutrition Findings (Please click <Entered> for more info): Nutritional Asmnt/Malnutrition Start: 12/23/16 10: 48 Text: Status: Complete Freq: Document 12/23/16 10:54 GSCHARITY (Rec: 12/23/16 11:01 CODY [id number]) Nutritional Asmnt/Malnutrition Patient General Information Nutritional Screening Diagnosis Diagnosis Mood disorder NOS Pertinent Medical Hx/Surgical Hx COPD, psychosis, dementia, chronic smoking Subjective Information 56 year old male. Pt is very polite and pleasant. Greeted pt in hallway, walked with pt to room and obtained CBW 165. 2lb with bedscal properly calibrated. Pt is unsure of UBW, stated he has always been this size. Avg PO intake 100% of meals since adm, meeting nutritional needs. Pt stated " everything is fine, I am eating good." Pt denied any nutritional concerns at this time. Teeth intact, denied difficulties chewing. Current Diet Order/ Nutrition Support Regular Pertinent Medications MOM, Theragran Pertinent Labs Reviewed. Nutritional Hx/Data Height 1.8 m Height (Calculated Centimeters) 180.3 Current Weight (lbs) 74.933 kg Weight (Calculated Kilograms) 74.9 Weight (Calculated Grams) 81037.5 [place] Body Weight 172 Recent Weight Change No Weight Status Approriate GI Symptoms Food Allergies No Skin Integrity/Comment: Rajinder 23. Skin intact. Current %PO Good (75-100%) Estimated Nutritional Goals Calories/Kcals/Kg CBW 165.2lb/74.9kg Kcals Calculated 1873-2247kcal (25-30kcal/kg) Protein Calculated 75g (1g/kg) Fluid: ml 1873-2247ml (1ml/kcal) Nutritional Problem 1. Problem Problem No nutritional problem at this time. Intervention/Recommendation Comments 1. Continue with current diet order. Avg PO intake is adequate. Expected Outcomes/Goals Expected Outcomes/Goals 1. PO intake continue to meet at least 75% of estimated nutritional needs.
[2016-12-27] MEDS: buPROPion XL 150 mg T 24 H PO SCH (08:34)
[2016-12-27] MEDS: Multivitamin Tab PO SCH (08:35)
[2016-12-27] MEDS: Benztropine 1 MG TAB PO SCH (08:35)
--- NOTE | 2016-12-27 21:53 | Progress Notes ---
DATE: 12/26/2016 SUBJECTIVE: Staff was spoken to. The patient is interviewed. Mood is noted to be irritable, labile. Affect is constricted. The patient is still having difficult time to cope with the stress. Patient has been sitting on the unit and trying to be inappropriate with the females. Patient needs to be redirected. The patient is currently on Depakote as well as Risperdal and the patient is going to be changed from the Lexapro 15 mg to 10 mg and the patient is going to be followed up with supportive therapy. ASSESSMENT: The patient is still having acute mood swings. PLAN: To continue the patient with the supportive therapy. I encouraged the patient to verbalize the concerns rather than to act out. JOB# [id number]
[2016-12-28] MEDS: buPROPion XL 150 mg T 24 H PO SCH (08:55)
[2016-12-28] MEDS: Multivitamin Tab PO SCH (08:56)
[2016-12-28] MEDS: Benztropine 1 MG TAB PO SCH (08:56)
--- NOTE | 2016-12-28 10:01 | Progress Notes ---
DATE: 12/27/2016 SUBJECTIVE: Staff was spoken to. The patient is interviewed. Mood is noted to be irritable. Affect is constricted. The patient's coping skills are noted to be still improving. Insight and judgment noted to be fair at this time. The patient has been placed on the Depakote for his mood swings. The patient is also on Risperdal 0.5 mg twice a day. No side effects to the medications are noted at this time. The patient has been able to verbalize the concerns rather than to act out. No side effects to the medications are noted at this time. ASSESSMENT: The patient seen and impulsivity is coming under control. PLAN: To discontinue the Lexapro and follow the patient with Risperdal and Depakote. [facility]# [id number]
--- NOTE | 2016-12-28 17:10 | General Progress Note ---
Subjective - Review of Systems Service Date: 12/28/16 Subjective: sitting in chair comfortably no distress Objective - Results Result Diagrams: 12/19/16 16:06 12/19/16 16:06 Recent Labs: Laboratory Last Values WBC 7.2 Th/cmm (4.8-10.8) 12/19/16 16:06 RBC 4.43 Mil/cmm (4.30-5.70) 12/19/16 16:06 Hgb 15.3 gm/dL (13.2-17.3) 12/19/16 16:06 Hct 46.9 % (39.0-49.0) 12/19/16 16:06 MCV 105.8 fl (80-99) H 12/19/16 16:06 MCH 34.6 pg (26.0-30.0) H 12/19/16 16:06 MCHC Differential 32.7 pg (28.0-36.0) 12/19/16 16:06 RDW 13.2 % (11.5-20.0) 12/19/16 16:06 Plt Count 183 Th/cmm (150-400) 12/19/16 16:06 MPV 9.8 fl 12/19/16 16:06 Neutrophils (Manual) 43 % (40-80) 12/19/16 16:06 Lymphocytes 40 % (20-50) 12/19/16 16:06 Monocytes 8 % (2-10) 12/19/16 16:06 Eosinophils 7 % (0-5) H 12/19/16 16:06 Basophils 1 % (0-3) 12/19/16 16:06 Atypical Lymphocytes 1 % 12/19/16 16:06 Platelet Estimate ADEQUATE (NORMAL) 12/19/16 16:06 Platelet Morphology NORMAL (NORMAL) 12/19/16 16:06 Anisocytosis 1+ 12/19/16 16:06 Macrocytosis 1+ 12/19/16 16:06 RBC Morph Micro Appear ABNORMAL (NORMAL) 12/19/16 16:06 Sodium 138 mEq/L (136-145) 12/19/16 16:06 Potassium 4.1 mEq/L (3.5-5.1) 12/19/16 16:06 Chloride 109 mEq/L (98-107) H 12/19/16 16:06 Carbon Dioxide 26.7 mEq/L (21.0-31.0) 12/19/16 16:06 Anion Gap 6.4 (7.0-16.0) L 12/19/16 16:06 BUN 18 mg/dL (7-25) 12/19/16 16:06 Creatinine 1.0 mg/dL (0.7-1.3) 12/19/16 16:06 Est GFR ( Amer) > 60.0 ml/min (>90) 12/19/16 16:06 Est GFR (Non-Af Amer) > 60.0 ml/min 12/19/16 16:06 BUN/Creatinine Ratio 18.0 12/19/16 16:06 Glucose 133 mg/dL (70-105) H 12/19/16 16:06 Calcium 9.5 mg/dL (8.6-10.3) 12/19/16 16:06 Total Bilirubin 0.5 mg/dL (0.3-1.0) 12/19/16 16:06 AST 14 U/L (13-39) 12/19/16 16:06 ALT 12 U/L (7-52) 12/19/16 16:06 Alkaline Phosphatase 81 U/L (34-104) 12/19/16 16:06 Total Protein 6.6 gm/dL (6.0-8.3) 12/19/16 16:06 Albumin 3.8 gm/dL (4.2-5.5) L 12/19/16 16:06 Globulin 2.8 gm/dL 12/19/16 16:06 Albumin/Globulin Ratio 1.4 (1.0-1.8) 12/19/16 16:06 Triglycerides 75 mg/dL (<150) 12/19/16 16:06 Cholesterol 144 mg/dL (<200) 12/19/16 16:06 LDL Cholesterol Direct 96 mg/dL (75-193) 12/19/16 16:06 HDL Cholesterol 42 mg/dL (23-92) 12/19/16 16:06 TSH 0.87 uIU/ml (0.34-5.60) 12/19/16 16:06 Urine Source CLEAN C 12/19/16 16:25 Urine Color YELLOW 12/19/16 16:25 Urine Clarity CLEAR (CLEAR) 12/19/16 16:25 Urine pH 7.0 (4.6 - 8.0) 12/19/16 16:25 Ur Specific [place] 1.010 (1.005-1.030) 12/19/16 16:25 Urine Protein NEGATIVE mg/dL (NEGATIVE) 12/19/16 16:25 Urine Glucose (UA) NEGATIVE mg/dL (NEGATIVE) 12/19/16 16:25 Urine Ketones NEGATIVE mg/dL (NEGATIVE) 12/19/16 16:25 Urine Blood NEGATIVE (NEGATIVE) 12/19/16 16:25 Urine Nitrate NEGATIVE (NEGATIVE) 12/19/16 16:25 Urine Bilirubin NEGATIVE (NEGATIVE) 12/19/16 16:25 Urine Urobilinogen 4.0 E.U./dL (0.2 - 1.0) H 12/19/16 16:25 Ur Leukocyte Esterase NEGATIVE (NEGATIVE) 12/19/16 16:25 Urine RBC NONE SEEN /hpf (0-5) 12/19/16 16:25 Urine WBC NONE SEEN /hpf (0-5) 12/19/16 16:25 Ur Epithelial Cells NONE SEEN /lpf (FEW) 12/19/16 16:25 Urine Bacteria NONE SEEN /hpf (NONE SEEN) 12/19/16 16:25 Salicylates < 25.0 mg/L (30.0-100.0) L 12/19/16 16:06 Urine Opiates Screen NEGATIVE (NEGATIVE) 12/19/16 16:25 Urine Methadone Screen NEGATIVE (NEGATIVE) 12/19/16 16:25 Acetaminophen < 10.0 ug/mL (10.0-30.0) L 12/19/16 16:06 Ur Barbiturates Screen NEGATIVE (NEGATIVE) 12/19/16 16:25 Ur Tricyclics Screen NEGATIVE (NEGATIVE) 12/19/16 16:25 Ur Phencyclidine Scrn NEGATIVE (NEGATIVE) 12/19/16 16:25 Amphetamines Screen NEGATIVE (NEGATIVE) 12/19/16 16:25 U Methamphetamines Scrn NEGATIVE (NEGATIVE) 12/19/16 16:25 U Benzodiazepines Scrn POSITIVE (NEGATIVE) H 12/19/16 16:25 U Cocaine Metab Screen NEGATIVE (NEGATIVE) 12/19/16 16:25 U Cannabinoids Screen NEGATIVE (NEGATIVE) 12/19/16 16:25 Ethyl Alcohol < 10 mg/dL (0-10) 12/19/16 16:06 RPR NONREACTIVE (NONREACTIVE) 12/19/16 16:06 - Physical Exam Vitals and I&O: Vital Signs Temp 98.4 F 12/28/16 14:00 Pulse 72 12/28/16 14:00 Resp 20 12/28/16 14:00 BP 102/56 12/28/16 14:00 Pulse Ox 97 12/28/16 14:00 Intake & Output 12/27/16 12/28/16 12/28/16 18:59 06:59 18:59 Intake Total 1200 600 Balance 1200 600 Intake: Oral 1200 600 Other: # Voids 5 2 # Bowel Movements 1 1 Active Medications: Current Medications Acetaminophen (Tylenol) 650 mg PO Q4HR PRN PRN Reason: Mild Pain / Temp above 100 Stop: 02/17/17 19:35 Al Hydrox/Mg Hydrox/Simethicone (Maalox) 30 ml PO Q4HR PRN PRN Reason: GI DISTRESS Stop: 02/17/17 19:35 Benztropine Mesylate (Cogentin) 1 mg PO DAILY KASSY Stop: 02/18/17 08:59 Last Admin: 12/28/16 08:56 Dose: 1 mg Divalproex Sodium (Depakote Dr) 500 mg PO BID KASSY PRN Reason: Protocol Stop: 02/18/17 08:59 Last Admin: 12/28/16 16:45 Dose: 500 mg Lorazepam (Ativan) 0.5 mg PO Q4HR PRN; Protocol PRN Reason: Anxiety Stop: 01/18/17 19:35 Last Admin: 12/27/16 13:40 Dose: 0.5 mg Magnesium Hydroxide (Milk Of Magnesia) 30 ml PO HS PRN PRN Reason: Constipation Multivitamins/Vitamin C (Theragran) 1 tab PO DAILY KASSY Stop: 02/18/17 08:59 Last Admin: 12/28/16 08:56 Dose: 1 tab Risperidone (Risperdal) 1 mg PO BID KASSY PRN Reason: Protocol Stop: 02/18/17 16:59 Last Admin: 12/28/16 16:45 Dose: 1 mg Zolpidem Tartrate (Ambien) 5 mg PO HS PRN PRN Reason: Insomnia Stop: 02/17/17 19:35 General: Alert, No acute distress Neck: Supple, JVD Cardiovascular: Regular rate, Normal S1, Normal S2 Lungs: Clear to auscultation Abdomen: Bowel sounds, Soft Assessment/Plan - Assessment Assessment: 1.COPD 2.DEMENTIA - Plan Plan: cont current treatment Nutritional Asmnt/Malnutr-PDOC - Dietary Evaluation Malnutrition Findings (Please click <Entered> for more info): Nutritional Asmnt/Malnutrition Start: 12/23/16 10: 48 Text: Status: Complete Freq: Document 12/23/16 10:54 GSCHARITY (Rec: 12/23/16 11:01 GSCHARITY [id number]) Nutritional Asmnt/Malnutrition Patient General Information Nutritional Screening Diagnosis Diagnosis Mood disorder NOS Pertinent Medical Hx/Surgical Hx COPD, psychosis, dementia, chronic smoking Subjective Information 56 year old male. Pt is very polite and pleasant. Greeted pt in hallway, walked with pt to room and obtained CBW 165. 2lb with bedscal properly calibrated. Pt is unsure of UBW, stated he has always been this size. Avg PO intake 100% of meals since adm, meeting nutritional needs. Pt stated " everything is fine, I am eating good." Pt denied any nutritional concerns at this time. Teeth intact, denied difficulties chewing. Current Diet Order/ Nutrition Support Regular Pertinent Medications MOM, Theragran Pertinent Labs Reviewed. Nutritional Hx/Data Height 1.8 m Height (Calculated Centimeters) 180.3 Current Weight (lbs) 74.933 kg Weight (Calculated Kilograms) 74.9 Weight (Calculated Grams) 88554.5 [place] Body Weight 172 Recent Weight Change No Weight Status Approriate GI Symptoms Food Allergies No Skin Integrity/Comment: Rajinder 23. Skin intact. Current %PO Good (75-100%) Estimated Nutritional Goals Calories/Kcals/Kg CBW 165.2lb/74.9kg Kcals Calculated 1873-2247kcal (25-30kcal/kg) Protein Calculated 75g (1g/kg) Fluid: ml 1873-2247ml (1ml/kcal) Nutritional Problem 1. Problem Problem No nutritional problem at this time. Intervention/Recommendation Comments 1. Continue with current diet order. Avg PO intake is adequate. Expected Outcomes/Goals Expected Outcomes/Goals 1. PO intake continue to meet at least 75% of estimated nutritional needs.
--- NOTE | 2016-12-28 21:13 | Admit Criteria Form ---
Admit Criteria Forms - Admit Criteria Diagnosis: PSYCHIATRIC DISORDERS (Place 'X' for any and all applicable criteria): Ongoing inpatient care may be needed for 1 or more of the following(1)(2)(3)(4)( 6)(7)(8): [ ]I. Danger to self or others not manageable at lower level of care. [ ]II. Grave disability (eg, inability to perform self care necessary at lower level of care) [ ]III. Agitation or inappropriate behavior interfering with care for primary condition (eg, attempting to discontinue lines or drains prematurely, unable to cooperate with respiratory care) [X ]IV. Severe disability or disorder indicated by ALL of the following: [ X]a) Severe behavioral health disorder-related symptoms or condition indicated by 1 or more of the following: [ ]i) Severe problem with cognition, memory, judgment, or impulse control [ X]ii) Severe clinical manifestations (eg, hallucinations , delusions, other acute psychotic symptoms, donaldo, extreme agitation or anxiety) [X ]b) Patient management at lower level of care is not feasible until acute intervention or modification is initiated. Extended stay beyond goal length of stay for the primary condition may be needed until ALLof the following are present(1)(2)(3)(4)(7)94)(23): [ ]a) Danger to self or others is absent or manageable at lower level of care [ ]b) Behavior crisis management, including physical or chemical restraints, is required and is not available at a lower level of care. [ ]c) Behavioral symptoms (e.g., agitation, somnolence, inappropriate behavior) are present, and are not manageable at a lower level of care. [ ]d) Patient cannot understand follow-up treatment and crisis plan. [ ]e) Provider and supports are sufficiently available at lower level of care. [ ]f) Patient can participate (e.g., verify absence of plan for harm) and is in needed of monitoring. The original [facility] content created by [facility] has been revised. The portions of the content which have been revised are identified through the use of italic text or in bold, and [facility] has neither reviewed nor approved the modified material. All other unmodified content is copyright [facility]. Please see references footnoted in the original [facility] edition 2017 Admit Criteria Met?: Yes
--- NOTE | 2016-12-29 03:25 | Progress Notes ---
DATE: 12/28/2016 SUBJECTIVE: Staff was spoken to. The patient is interviewed. Mood is noted to be less irritable. Affect is appropriate. The patient has been able to participate in the groups and verbalize the concerns, but the patient is impulsive and needs to be redirected from the other females. The patient has been having difficult time to cope with the stress. The patient is currently on Risperdal 0.5 mg and plan to increase the dose on the medication to 1 mg twice a day and continue the patient with supportive therapy and possibly hold off the Wellbutrin. ASSESSMENT: The patient's impulsivity is under control. PLAN: To continue the patient with the supportive therapy. I encouraged the patient to verbalize the concerns rather than to act out. The patient is going to be maintained on the Depakote and Risperdal and the Wellbutrin is going to be discontinued. JOB# [id number]
[2016-12-29] MEDS: Multivitamin Tab PO SCH (10:05)
[2016-12-29] MEDS: Benztropine 1 MG TAB PO SCH (10:05)
--- NOTE | 2016-12-29 13:49 | Internal Medicine Prog Note ---
Internal Medicine Subjective - Subjective Service Date: 12/29/16 Patient seen and examined:: without staff (HE FEELS WELL.) Patient is:: awake, verbal, interactive, talking Per staff patient has:: no adverse event (HE DENIES ANY PAIN OR SOB.) Internal Medicine Objective - Results Result Diagrams: 12/19/16 16:06 12/19/16 16:06 Recent Labs: Laboratory Last Values WBC 7.2 Th/cmm (4.8-10.8) 12/19/16 16:06 RBC 4.43 Mil/cmm (4.30-5.70) 12/19/16 16:06 Hgb 15.3 gm/dL (13.2-17.3) 12/19/16 16:06 Hct 46.9 % (39.0-49.0) 12/19/16 16:06 MCV 105.8 fl (80-99) H 12/19/16 16:06 MCH 34.6 pg (26.0-30.0) H 12/19/16 16:06 MCHC Differential 32.7 pg (28.0-36.0) 12/19/16 16:06 RDW 13.2 % (11.5-20.0) 12/19/16 16:06 Plt Count 183 Th/cmm (150-400) 12/19/16 16:06 MPV 9.8 fl 12/19/16 16:06 Neutrophils (Manual) 43 % (40-80) 12/19/16 16:06 Lymphocytes 40 % (20-50) 12/19/16 16:06 Monocytes 8 % (2-10) 12/19/16 16:06 Eosinophils 7 % (0-5) H 12/19/16 16:06 Basophils 1 % (0-3) 12/19/16 16:06 Atypical Lymphocytes 1 % 12/19/16 16:06 Platelet Estimate ADEQUATE (NORMAL) 12/19/16 16:06 Platelet Morphology NORMAL (NORMAL) 12/19/16 16:06 Anisocytosis 1+ 12/19/16 16:06 Macrocytosis 1+ 12/19/16 16:06 RBC Morph Micro Appear ABNORMAL (NORMAL) 12/19/16 16:06 Sodium 138 mEq/L (136-145) 12/19/16 16:06 Potassium 4.1 mEq/L (3.5-5.1) 12/19/16 16:06 Chloride 109 mEq/L (98-107) H 12/19/16 16:06 Carbon Dioxide 26.7 mEq/L (21.0-31.0) 12/19/16 16:06 Anion Gap 6.4 (7.0-16.0) L 12/19/16 16:06 BUN 18 mg/dL (7-25) 12/19/16 16:06 Creatinine 1.0 mg/dL (0.7-1.3) 12/19/16 16:06 Est GFR ( Amer) > 60.0 ml/min (>90) 12/19/16 16:06 Est GFR (Non-Af Amer) > 60.0 ml/min 12/19/16 16:06 BUN/Creatinine Ratio 18.0 12/19/16 16:06 Glucose 133 mg/dL (70-105) H 12/19/16 16:06 Calcium 9.5 mg/dL (8.6-10.3) 12/19/16 16:06 Total Bilirubin 0.5 mg/dL (0.3-1.0) 12/19/16 16:06 AST 14 U/L (13-39) 12/19/16 16:06 ALT 12 U/L (7-52) 12/19/16 16:06 Alkaline Phosphatase 81 U/L (34-104) 12/19/16 16:06 Total Protein 6.6 gm/dL (6.0-8.3) 12/19/16 16:06 Albumin 3.8 gm/dL (4.2-5.5) L 12/19/16 16:06 Globulin 2.8 gm/dL 12/19/16 16:06 Albumin/Globulin Ratio 1.4 (1.0-1.8) 12/19/16 16:06 Triglycerides 75 mg/dL (<150) 12/19/16 16:06 Cholesterol 144 mg/dL (<200) 12/19/16 16:06 LDL Cholesterol Direct 96 mg/dL (75-193) 12/19/16 16:06 HDL Cholesterol 42 mg/dL (23-92) 12/19/16 16:06 TSH 0.87 uIU/ml (0.34-5.60) 12/19/16 16:06 Urine Source CLEAN C 12/19/16 16:25 Urine Color YELLOW 12/19/16 16:25 Urine Clarity CLEAR (CLEAR) 12/19/16 16:25 Urine pH 7.0 (4.6 - 8.0) 12/19/16 16:25 Ur Specific [place] 1.010 (1.005-1.030) 12/19/16 16:25 Urine Protein NEGATIVE mg/dL (NEGATIVE) 12/19/16 16:25 Urine Glucose (UA) NEGATIVE mg/dL (NEGATIVE) 12/19/16 16:25 Urine Ketones NEGATIVE mg/dL (NEGATIVE) 12/19/16 16:25 Urine Blood NEGATIVE (NEGATIVE) 12/19/16 16:25 Urine Nitrate NEGATIVE (NEGATIVE) 12/19/16 16:25 Urine Bilirubin NEGATIVE (NEGATIVE) 12/19/16 16:25 Urine Urobilinogen 4.0 E.U./dL (0.2 - 1.0) H 12/19/16 16:25 Ur Leukocyte Esterase NEGATIVE (NEGATIVE) 12/19/16 16:25 Urine RBC NONE SEEN /hpf (0-5) 12/19/16 16:25 Urine WBC NONE SEEN /hpf (0-5) 12/19/16 16:25 Ur Epithelial Cells NONE SEEN /lpf (FEW) 12/19/16 16:25 Urine Bacteria NONE SEEN /hpf (NONE SEEN) 12/19/16 16:25 Salicylates < 25.0 mg/L (30.0-100.0) L 12/19/16 16:06 Urine Opiates Screen NEGATIVE (NEGATIVE) 12/19/16 16:25 Urine Methadone Screen NEGATIVE (NEGATIVE) 12/19/16 16:25 Acetaminophen < 10.0 ug/mL (10.0-30.0) L 12/19/16 16:06 Ur Barbiturates Screen NEGATIVE (NEGATIVE) 12/19/16 16:25 Ur Tricyclics Screen NEGATIVE (NEGATIVE) 12/19/16 16:25 Ur Phencyclidine Scrn NEGATIVE (NEGATIVE) 12/19/16 16:25 Amphetamines Screen NEGATIVE (NEGATIVE) 12/19/16 16:25 U Methamphetamines Scrn NEGATIVE (NEGATIVE) 12/19/16 16:25 U Benzodiazepines Scrn POSITIVE (NEGATIVE) H 12/19/16 16:25 U Cocaine Metab Screen NEGATIVE (NEGATIVE) 12/19/16 16:25 U Cannabinoids Screen NEGATIVE (NEGATIVE) 12/19/16 16:25 Ethyl Alcohol < 10 mg/dL (0-10) 12/19/16 16:06 RPR NONREACTIVE (NONREACTIVE) 12/19/16 16:06 - Physical Exam Vitals and I&O: Vital Signs Temp 99.2 F 12/29/16 06:18 Pulse 88 12/29/16 06:18 Resp 18 12/29/16 06:18 BP 96/64 12/29/16 06:18 Pulse Ox 94 12/29/16 06:18 Intake & Output 12/28/16 12/29/16 12/29/16 18:59 06:59 18:59 Intake Total 1800 180 Balance 1800 180 Intake: Oral 1800 180 Other: # Voids 4 3 # Bowel Movements 1 0 Active Medications: Current Medications Acetaminophen (Tylenol) 650 mg PO Q4HR PRN PRN Reason: Mild Pain / Temp above 100 Stop: 02/17/17 19:35 Al Hydrox/Mg Hydrox/Simethicone (Maalox) 30 ml PO Q4HR PRN PRN Reason: GI DISTRESS Stop: 02/17/17 19:35 Benztropine Mesylate (Cogentin) 1 mg PO DAILY KASSY Stop: 02/18/17 08:59 Last Admin: 12/29/16 10:05 Dose: 1 mg Divalproex Sodium (Depakote Dr) 500 mg PO BID KASSY PRN Reason: Protocol Stop: 02/18/17 08:59 Last Admin: 12/29/16 10:05 Dose: 500 mg Lorazepam (Ativan) 0.5 mg PO Q4HR PRN; Protocol PRN Reason: Anxiety Stop: 01/18/17 19:35 Last Admin: 12/27/16 13:40 Dose: 0.5 mg Magnesium Hydroxide (Milk Of Magnesia) 30 ml PO HS PRN PRN Reason: Constipation Multivitamins/Vitamin C (Theragran) 1 tab PO DAILY KASSY Stop: 02/18/17 08:59 Last Admin: 12/29/16 10:05 Dose: 1 tab Risperidone (Risperdal) 1 mg PO BID KASSY PRN Reason: Protocol Stop: 02/18/17 16:59 Last Admin: 12/29/16 10:05 Dose: 1 mg Zolpidem Tartrate (Ambien) 5 mg PO HS PRN PRN Reason: Insomnia Stop: 02/17/17 19:35 General: alert HEENT: NC/AT, PERRLA, EOMI, anicteric sclerae, throat clear Neck: Supple, No JVD, No thyromegaly, +2 carotid pulse wo bruit, No LAD Lungs: CTAB Cardiovascular: RRR, Normal S1, Normal S2, without murmur Abdomen: soft, non-tender, non-distended Extremities: clear Neurological: no change, gait stable Internal Medicine Assmt/Plan - Assessment Assessment: 1.COPD 2.DEMENTIA - Plan Plan: CONTIMUE ON CURRENT MEDICATION AND DIET. Nutritional Asmnt/Malnutr-PDOC - Dietary Evaluation Malnutrition Findings (Please click <Entered> for more info): Nutritional Asmnt/Malnutrition Start: 12/23/16 10: 48 Text: Status: Complete Freq: Document 12/23/16 10:54 GSCHARITY (Rec: 12/23/16 11:01 GSCHARITY [id number]) Nutritional Asmnt/Malnutrition Patient General Information Nutritional Screening Diagnosis Diagnosis Mood disorder NOS Pertinent Medical Hx/Surgical Hx COPD, psychosis, dementia, chronic smoking Subjective Information 56 year old male. Pt is very polite and pleasant. Greeted pt in hallway, walked with pt to room and obtained CBW 165. 2lb with bedscal properly calibrated. Pt is unsure of UBW, stated he has always been this size. Avg PO intake 100% of meals since adm, meeting nutritional needs. Pt stated " everything is fine, I am eating good." Pt denied any nutritional concerns at this time. Teeth intact, denied difficulties chewing. Current Diet Order/ Nutrition Support Regular Pertinent Medications MOM, Theragran Pertinent Labs Reviewed. Nutritional Hx/Data Height 1.8 m Height (Calculated Centimeters) 180.3 Current Weight (lbs) 74.933 kg Weight (Calculated Kilograms) 74.9 Weight (Calculated Grams) [address]105.5 [place] Body Weight 172 Recent Weight Change No Weight Status Approriate GI Symptoms Food Allergies No Skin Integrity/Comment: Rajinder 23. Skin intact. Current %PO Good (75-100%) Estimated Nutritional Goals Calories/Kcals/Kg CBW 165.2lb/74.9kg Kcals Calculated 1873-2247kcal (25-30kcal/kg) Protein Calculated 75g (1g/kg) Fluid: ml 1873-2247ml (1ml/kcal) Nutritional Problem 1. Problem Problem No nutritional problem at this time. Intervention/Recommendation Comments 1. Continue with current diet order. Avg PO intake is adequate. Expected Outcomes/Goals Expected Outcomes/Goals 1. PO intake continue to meet at least 75% of estimated nutritional needs.
--- NOTE | 2016-12-30 02:24 | Progress Notes ---
DATE: 12/29/2016 SUBJECTIVE: Staff was spoken to. The patient is interviewed. Mood is noted to be anxious. Affect is appropriate. The patient is not suicidal. Insight and judgment noted to be improving. Impulse control seems to be fair. Coping skills are also noted to be fair. No side effects to the medications are noted at this time. ASSESSMENT: The patient is stabilizing. PLAN: To discharge the patient today for followup on outpatient basis. [facility]# [id number]
== END 2016-12-29 14:35 | DRG 884 ==
LOC: ER 15:52 → GERO 17:15
DX: F03.91 Unspecified dementia, unspecified severity, with behavioral disturbance (principal); F32.9 Major depressive disorder, single episode, unspecified; F39 Unspecified mood [affective] disorder; J44.9 Chronic obstructive pulmonary disease, unspecified; F29 Unspecified psychosis not due to a substance or known physiological condition; F17.210 Nicotine dependence, cigarettes, uncomplicated
CPT/HCPCS: 36415-UA; 80053-TC; 80061-TC; 80307; 80320-TC; 80329-TC; 81001-TC; 84443-TC; 85007-TC; 85027-TC; 86592-TC; 90899; 93005; G0410; Z7610

== ENCOUNTER 2018-10-11 11:32 | Emergency (ER) | payer MEDICARE, OTHER ==
[2018-10-11 12:33] LABS: URINE SOURCE RANDOM
--- NOTE | 2018-10-11 12:39 | ED Physician Chart ---
ED Chief Complaint/HPI - Patient Information Date Seen:: 10/11/18 Time Seen:: 12:00 Chief Complaint:: incontinent 7 months Allergies:: Allergies Allergy/AdvReac Type Severity Reaction Status Date / Time No Known Allergies Allergy Verified 12/19/16 16:16 Vitals:: Vital Signs - 8 hr 10/11/18 11:51 Temp 97.6 F HR 75 RR 16 BP 94/62 O2 Sat % 96 Historian:: Patient, EMS (pmd history is regarding psyche issue a board and care ) Review:: Nurse's Note Reviewed, Transfer documents Reviewed ([place]) ED Review of Systems - Review of Systems General/Constitutional: No fever (unreliable historian) ED Past Medical History - Past Medical History Social History: No Drug Use Family Medical History - Family Member Mother History Unknown: Yes (in [place]) ED Physical Exam - Physical Examination General/Constitutional: No distress, Non-toxic appearing Head: Atraumatic Eyes: Lids, conjuctiva normal Skin: Nl inspection ENMT: External ears, nose nl Neck: Nontender Respiratory: Nl effort/Exclusion Cardio Vascular: RRR GI: No tenderness/rebounding/guarding : No CVA tenderness Extremities: No tenderness or effusion Neuro/Psych: No focal deficits Misc: Normal back ED Septic Shock - . Is Septic Shock (SBP<90, OR Lactate>4 mmol\L) present?: No - <6hrs of presentation: Vital Signs: Vital Signs - 8 hr 10/11/18 11:51 Temp 97.6 F HR 75 RR 16 BP 94/62 O2 Sat % 96 ED Reassessment (Disposition) - Reassessment Reassessment Condition:: Unchanged (evaluated by psyche nursing no acute etiology no harm to self or others) - Patient Disposition Discharge/Transfer:: Assisted Care - SNF
[2018-10-11 13:00] LABS: URINE BILIRUBIN NEGATIVE (NEGATIVE); URINE BLOOD NEGATIVE (NEGATIVE); URINE GLUCOSE (UA) NEGATIVE (NEGATIVE); URINE KETONE NEGATIVE (NEGATIVE); URINE LEUKOCYTE ESTERASE NEGATIVE (NEGATIVE); URINE NITRATE NEGATIVE (NEGATIVE); URINE PH 7.5 (4.6 - 8.0); URINE PROTEIN NEGATIVE (NEGATIVE); URINE UROBILINOGEN 0.2 E.U./dL (0.2 - 1.0)
[2018-10-11 13:05] LABS: URINE CLARITY CLEAR (CLEAR); URINE COLOR YELLOW; URINE MICROSCOPIC INDICATED? NO
[2018-10-11 13:41] LABS: ANION GAP 11.5 (7.0-16.0); BUN - UREA NITROGEN 10 mg/dL (7-25); CALCIUM SERUM 9.4 mg/dL (8.6-10.3); CARBON DIOXIDE 29.8 mEq/L (21.0-31.0); CHLORIDE 102 mEq/L (98-107); GFR AFRICAN-AMERICAN > 60.0 ml/min (>90); GFR NON AFRICAN-AMERICAN > 60.0 ml/min; GLUCOSE 130 mg/dL (70-105); POTASSIUM SERUM 4.3 mEq/L (3.5-5.1); SODIUM SERUM 139 mEq/L (136-145)
[2018-10-11 14:20] LABS: RED BLOOD COUNT 4.47 Mil/cmm (4.30-5.70); WHITE BLOOD COUNT 7.5 Th/cmm (4.8-10.8)
[2018-10-11 14:21] LABS: HEMATOCRIT 45.3 % (41.0-60); HEMOGLOBIN 15.1 gm/dL (12-16); MEAN CELL VOLUME 101.5 fl (80-99); MEAN CORPUSCULAR HEMOGLOBIN 33.8 pg (26.0-30.0); MEAN CORPUSCULAR HGB CONC 33.3 pg (28.0-36.0); PLATELET COUNT 272 Th/cmm (150-400); RED CELL DISTRIBUTION WIDTH 15.5 % (11.5-20.0)
[2018-10-11 14:22] LABS: % BASOPHILS 0.9 % (0.0-2.0); % EOSINOPHILS 4.3 % (0.0-5.0); % LYMPHOCYTES 32.8 % (20.0-50.0); BASOPHILE ABSOLUTE 0.1 Th/cumm (0-0.2); EOSINOPHILE ABSOLUTE 0.3 Th/cmm (0.1-0.4); LYMPHOCYTE ABSOLUTE 2.5 Th/cmm (1.5-3.0); MONOCYTE ABSOLUTE 0.9 Th/cmm (0.3-1.0); NEUTROPHILE ABSOLUTE 3.7 Th/cmm (1.8-8.0)
== END 2018-10-11 18:30 | disposition home or self-care (01) ==
LOC: ER 11:32
DX: R32 Unspecified urinary incontinence (principal); R35.0 Frequency of micturition
CPT/HCPCS: 36415-UA; 80048-TC; 81003-TC; 82948-90; 85025-TC; Z7502

== ENCOUNTER 2018-10-21 19:22 | Inpatient (IN) | payer MEDICARE, OTHER ==
[2018-10-21 19:52] LABS: URINE SOURCE RANDOM
[2018-10-21 20:03] LABS: URINE BILIRUBIN NEGATIVE (NEGATIVE); URINE BLOOD NEGATIVE (NEGATIVE); URINE GLUCOSE (UA) NEGATIVE (NEGATIVE); URINE KETONE NEGATIVE (NEGATIVE); URINE LEUKOCYTE ESTERASE NEGATIVE (NEGATIVE); URINE NITRATE NEGATIVE (NEGATIVE); URINE PROTEIN NEGATIVE (NEGATIVE); URINE UROBILINOGEN 0.2 E.U./dL (0.2 - 1.0)
[2018-10-21 20:08] LABS: URINE CLARITY CLEAR (CLEAR); URINE COLOR YELLOW; URINE EPITHELIAL CELLS NONE SEEN /lpf (FEW); URINE MICROSCOPIC INDICATED? YES; URINE RBC 0-2 /hpf (0-5); URINE WBC 0-2 /hpf (0-5)
[2018-10-21 20:09] LABS: URINE BACTERIA FEW /hpf (NONE SEEN)
[2018-10-21 20:17] LABS: AMYLASE SERUM 33 U/L (29-103); LIPASE 28 U/L (11-82)
[2018-10-21] MEDS ORDERED: Sodium Chloride 0.9% 1,000 ML IV ONE (20:28)
--- NOTE | 2018-10-21 20:30 | ED Physician Chart ---
ED Chief Complaint/HPI - Patient Information Date Seen:: 10/21/18 Time Seen:: 20:20 Chief Complaint:: increased confusion History of Present Illness:: 58 yr old male with confusion getting worse from boarding care also urinary frequency urgency and abd pain Allergies:: Allergies Allergy/AdvReac Type Severity Reaction Status Date / Time No Known Allergies Allergy Verified 12/19/16 16:16 Vitals:: Vital Signs - 8 hr 10/21/18 10/21/18 19:25 19:45 Temp 98.5 F 98.7 F HR 88 75 RR 18 15 BP 150/82 117/71 O2 Sat % 95 95 ED Review of Systems - Review of Systems General/Constitutional: No fever, No chills, No weight loss, No weakness, No diaphoresis, No edema, No loss of appetite Skin: No skin lesions, No rash, No bruising Head: No headache, No light-headedness Eyes: No loss of vision, No pain, No diplopia ENT: No earache, No nasal drainage, No sore throat, No tinnitus Neck: No neck pain, No swelling, No thyromegaly, No stiffness, No mass noted Cardio Vascular: No chest pain, No palpitations, No PND, No orthopnea, No edema Pulmonary: No SOB, No cough, No sputum, No wheezing GI: No nausea, No vomiting, No diarrhea, No pain, No melena, No hematochezia, No constipation, No hematemesis G/U: No dysuria, No frequency, No hematuria Musculoskeletal: No bone or joint pain, No back pain, No muscle pain Endocrine: No polyuria, No polydipsia Psychiatric: No prior psych history, No depression, No anxiety, No suicidal ideation Hematopoietic: No bruising, No lymphadenopathy Allergic/Immuno: No urticaria, No angioedema Neurological: No syncope, No focal symptoms, No weakness, No paresthesia, No headache, No seizure, No dizziness, No confusion, No vertigo ED Past Medical History - Past Medical History Past Medical History: Other (schizo phrenia and paronia) Family Medical History - Family Member Mother History Unknown: Yes ED Physical Exam - Physical Examination General/Constitutional: Awake, Well-developed, well-nourished, Alert, No distress, GCS 15, Non-toxic appearing, Ambulatory Head: Atraumatic Eyes: Lids, conjuctiva normal, PERRL, EOMI Skin: Nl inspection, No rash, No skin lesions, No ecchymosis, Well hydrated, No lymphadenopathy ENMT: External ears, nose nl, Nasal exam nl, Lips, teeth, gums nl Neck: Nontender, Full ROM w/o pain, No JVD Respiratory: Nl effort/Exclusion, Clear to Auscultation, No Wheeze/Rhonchi/Rales Cardio Vascular: RRR, No murmur, gallop, rubs, NL S1 S2 GI: No tenderness/rebounding/guarding, No organomegaly, No hernia, Normal BS's, Nondistended, No mass/bruits, No McBurney tenderness : No CVA tenderness Extremities: No tenderness or effusion, Full ROM, normal strength in all extremities, No edema, Normal digits & nails Neuro/Psych: DTR's symmetric, Normal sensory exam, Normal motor strength Misc: Normal back, No paraspinal tenderness ED Labs/Radiology/EKG Results - Lab Results Results: Laboratory Tests 10/21/18 19:35 Urine Source RANDOM Urine Color YELLOW Urine Clarity CLEAR Urine pH 6.0 Ur Specific [place] <= 1.005 Urine Protein NEGATIVE Urine Glucose (UA) NEGATIVE Urine Ketones NEGATIVE Urine Blood NEGATIVE Urine Nitrate NEGATIVE Urine Bilirubin NEGATIVE Urine Urobilinogen 0.2 Ur Leukocyte Esterase NEGATIVE Urine RBC 0-2 H Urine WBC 0-2 Ur Epithelial Cells NONE SEEN Urine Bacteria FEW ED Assessment - Assessment General Assessment: abd pain psychosis ED Septic Shock - . Is Septic Shock (SBP<90, OR Lactate>4 mmol\L) present?: No - <6hrs of presentation: Vital Signs: Vital Signs - 8 hr 10/21/18 10/21/18 19:25 19:45 Temp 98.5 F 98.7 F HR 88 75 RR 18 15 BP 150/82 117/71 O2 Sat % 95 95 ED Reassessment (Disposition) - Reassessment Reassessment:: abd pain - Diagnosis Diagnosis:: abd pain - Patient Disposition Discharge/Transfer:: Acute Care w/in this hosp Admitted to:: Med/Surg Condition at Disposition:: Stable
[2018-10-21 21:04] LABS: ALB/GLOB RATIO 1.2 (1.0-1.8); ALBUMIN 3.6 gm/dL (4.2-5.5); ALKALINE PHOSPHATASE 85 U/L (34-104); ANION GAP 12.5 (7.0-16.0); BILIRUBIN,TOTAL 0.4 mg/dL (0.3-1.0); BUN - UREA NITROGEN 14 mg/dL (7-25); CALCIUM SERUM 9.1 mg/dL (8.6-10.3); CARBON DIOXIDE 27.7 mEq/L (21.0-31.0); CHLORIDE 99 mEq/L (98-107); CREATININE - SERUM 1.1 mg/dL (0.7-1.3); GFR AFRICAN-AMERICAN > 60.0 ml/min (>90); GFR NON AFRICAN-AMERICAN > 60.0 ml/min; GLUCOSE 96 mg/dL (70-105); POTASSIUM SERUM 4.2 mEq/L (3.5-5.1); SGOT 19 U/L (13-39); SGPT/ALT 15 U/L (7-52); SODIUM SERUM 135 mEq/L (136-145); TOTAL PROTEIN,SERUM 6.6 gm/dL (6.0-8.3)
[2018-10-21 21:07] LABS: AMPHETAMINE URINE NEGATIVE (NEGATIVE); BARBITURATES URINE NEGATIVE (NEGATIVE); BENZODIAZEPINES QUAL URINE NEGATIVE (NEGATIVE); CANNABINOID THC NEGATIVE (NEGATIVE); COCAINE METABOLITE QUAL URINE NEGATIVE (NEGATIVE); METHADONE URINE NEGATIVE (NEGATIVE); METHAMPHETAMINES QUAL URINE NEGATIVE (NEGATIVE); OPIATES (MORPHINE) QUAL. URINE NEGATIVE (NEGATIVE); PHENCYCLIDINE (PCP) URINE NEGATIVE (NEGATIVE); TRICYCLICS (TCA) QUAL. URINE POSITIVE (NEGATIVE)
[2018-10-21 21:20] LABS: % BASOPHILS 0.9 % (0.0-2.0); % EOSINOPHILS 4.1 % (0.0-5.0); % LYMPHOCYTES 35.2 % (20.0-50.0); % NEUTROPHILS 47.8 % (40.0-80.0); BASOPHILE ABSOLUTE 0.1 Th/cumm (0-0.2); EOSINOPHILE ABSOLUTE 0.3 Th/cmm (0.1-0.4); HEMOGLOBIN 14.6 gm/dL (12-16); MEAN CELL VOLUME 99.3 fl (80-99); MEAN CORPUSCULAR HEMOGLOBIN 34.5 pg (26.0-30.0); MEAN CORPUSCULAR HGB CONC 34.8 pg (28.0-36.0); NEUTROPHILE ABSOLUTE 4.1 Th/cmm (1.8-8.0); PLATELET COUNT 237 Th/cmm (150-400); RED BLOOD COUNT 4.23 Mil/cmm (4.30-5.70); RED CELL DISTRIBUTION WIDTH 14.8 % (11.5-20.0); WHITE BLOOD COUNT 8.5 Th/cmm (4.8-10.8)
[2018-10-22 02:06] VITALS: BP 99/61
[2018-10-22] MEDS: Sodium Chloride 0.45% 1,000 ML IV SCH (02:36)
[2018-10-22 04:47] LABS: % BASOPHILS 0.5 % (0.0-2.0); % EOSINOPHILS 5.6 % (0.0-5.0); % LYMPHOCYTES 35.4 % (20.0-50.0); % MONOCYTES 12.8 % (2.0-10.0); % NEUTROPHILS 45.7 % (40.0-80.0); EOSINOPHILE ABSOLUTE 0.5 Th/cmm (0.1-0.4); HEMATOCRIT 39.4 % (41.0-60); MEAN CELL VOLUME 97.2 fl (80-99); MEAN CORPUSCULAR HEMOGLOBIN 34.6 pg (26.0-30.0); MEAN CORPUSCULAR HGB CONC 35.5 pg (28.0-36.0); MONOCYTE ABSOLUTE 1.1 Th/cmm (0.3-1.0); PLATELET COUNT 220 Th/cmm (150-400); RED BLOOD COUNT 4.05 Mil/cmm (4.30-5.70); WHITE BLOOD COUNT 8.6 Th/cmm (4.8-10.8)
[2018-10-22 05:07] LABS: ANION GAP 7.5 (7.0-16.0); BUN - UREA NITROGEN 13 mg/dL (7-25); CALCIUM SERUM 8.8 mg/dL (8.6-10.3); CARBON DIOXIDE 29.5 mEq/L (21.0-31.0); CHLORIDE 103 mEq/L (98-107); CREATININE - SERUM 0.9 mg/dL (0.7-1.3); GFR AFRICAN-AMERICAN > 60.0 ml/min (>90); GFR NON AFRICAN-AMERICAN > 60.0 ml/min; GLUCOSE 112 mg/dL (70-105); SODIUM SERUM 136 mEq/L (136-145)
--- NOTE | 2018-10-22 05:21 | History & Physical ---
ADMIT DATE: 10/22/2018 PSYCHIATRIC CONSULTATION PATIENT'S AGE: 58. SEX: Male. PHYSICIAN: Dr. Arteaga. RESOURCE PROTECTION SPECIALIST: Dr. Recio. TYPE OF THE REPORT: Psychiatric consult. REASON FOR THE CONSULT: Hallucinations and disorganized thoughts. HISTORY OF PRESENT ILLNESS: The patient is a 58-year-old male with history of schizophrenia. The patient was admitted to the hospital under the care of Dr. Arteaga and the patient noticed to be actively hallucinating and anxious. Chart reviewed and the patient interviewed and discussed the patient's condition with the staff and reviewed the records and labs. The patient was rambling and mumbling and unable to give any coherent conversation during my interview. He also seems to be preoccupied. The patient also has disorganized thoughts. During interview, the patient also was restless and was actively responding. PAST PSYCHIATRIC HISTORY: The patient has history of schizophrenia. PAST MEDICAL HISTORY: The patient denied any medical issues, but the patient was admitted to the medical floor under the care of Dr. Arteaga because the patient has increased confusion that is getting worse in the [facility] where he lives. SOCIAL HISTORY: The patient lives in [facility]. He denies any alcohol or drug use. The patient is single, never and has no children, but again patient was not clear because of rambling and mumbling. PSYCHIATRIC MEDICATIONS: The patient is taking Depakote 500 mg twice a day and Haldol 5 mg at bedtime. MENTAL STATUS EXAMINATION: The patient appears slightly older than stated age. Disheveled. Rambling. Thought processes are circumstantial and incoherent. The patient denies any hallucinations or delusions, but actively responding to stimuli. The patient denies any thoughts of suicide or homicide. The patient is alert and oriented to the situation and place and person and the date. Intact immediate, recent and remote memories. Fair insight and judgment at this time. Seems to be of low average intelligence based on his verbal ability. ASSESSMENT: PRIMARY DIAGNOSIS: Schizophrenic disorder. TREATMENT PLAN: We will continue Depakote and Haldol and Wellbutrin. Also, we will get Depakote blood level. Also, we will monitor his behavior and his condition. Thanks, Dr. Arteaga and we will follow with you. [facility]# [id number]
--- NOTE | 2018-10-22 07:50 | History & Physical ---
ADMIT DATE: 10/22/2018 CHIEF COMPLAINT: Agitation. HISTORY OF PRESENT ILLNESS: This is a 58-year-old male who [facility] ER [facility] due to increase in agitation and aggressive behavior. In the Emergency Room medical workup was done, in which the patient appears to be stable and admitted to Med/Surg for further observation and also with psychiatric management. REVIEW OF SYSTEMS: GENERAL: This is a 58-year-old male. No fever. No weakness. No headache. No dizziness. EYES: No eye pain, no blurred vision. NECK: No neck pain, no nuchal rigidity. CHEST: No chest pain. No palpitation. PULMONARY: No coughing, no shortness of breath. GASTROINTESTINAL: No abdominal pain, no constipation, no diarrhea. MUSCULOSKELETAL: No joint pain, no muscle pain. SOCIAL HISTORY: The patient lives in [facility] to [facility]. PSYCHIATRIC HISTORY: Includes schizophrenia. FAMILY HISTORY: Unremarkable. PAST SURGICAL HISTORY: Unremarkable. PAST MEDICAL HISTORY: Includes history of hypertension. PHYSICAL EXAMINATION: VITAL SIGNS: Temperature 97.4, heart rate 71, blood pressure 153/67, respirations 20, 96% on room air. GENERAL: This is a 58-year-old male who appears as stated in no acute distress. HEENT: Head is atraumatic and normocephalic, atraumatic. Conjunctivae are clear. Bilateral pupils are equally round and reactive. NECK: Supple. No JVD. CARDIOVASCULAR: S1 and S2 without murmur. PULMONARY: Clear to auscultation. GASTROINTESTINAL: Soft and nontender without guarding. Positive bowel sounds. MUSCULOSKELETAL: No clubbing. No cyanosis noted. ASSESSMENT: 1. Agitation. 2. Schizophrenia. 3. History of hypertension. PLAN: We will admit the patient to Med/Surg Unit. We will consult with the psychiatrist to monitor the patient's condition. We will monitor the patient's condition with the medication reconciliation accordingly. Treatment plans were discussed with the patient's nurse. Treatment plans were discussed with Dr. Arteaga. [facility]# [id number]
[2018-10-22] MEDS: Benztropine 1 MG TAB PO SCH ×2 (08:33→16:31)
[2018-10-23] MEDS: Sodium Chloride 0.45% 1,000 ML IV SCH ×2 (02:17→14:13)
[2018-10-23] MEDS: Benztropine 1 MG TAB PO SCH ×2 (08:40→16:17)
--- NOTE | 2018-10-23 15:08 | Internal Medicine Prog Note ---
Internal Medicine Subjective - Subjective Service Date: 10/23/18 Patient seen and examined:: with staff Patient is:: awake, verbal Patient Complaints of:: other (hx of schizophrenia.) Per staff patient has:: no adverse event, no episodes of fall Internal Medicine Objective - Results Result Diagrams: 10/22/18 04:25 10/22/18 04:25 Recent Labs: Laboratory Last Values WBC 8.6 Th/cmm (4.8-10.8) 10/22/18 04:25 RBC 4.05 Mil/cmm (4.30-5.70) L 10/22/18 04:25 Hgb 14.0 gm/dL (12-16) 10/22/18 04:25 Hct 39.4 % (41.0-60) L 10/22/18 04:25 MCV 97.2 fl (80-99) 10/22/18 04:25 MCH 34.6 pg (26.0-30.0) H 10/22/18 04:25 MCHC Differential 35.5 pg (28.0-36.0) 10/22/18 04:25 RDW 15.0 % (11.5-20.0) 10/22/18 04:25 Plt Count 220 Th/cmm (150-400) 10/22/18 04:25 MPV 8.9 fl 10/22/18 04:25 Neutrophils % 45.7 % (40.0-80.0) 10/22/18 04:25 Lymphocytes % 35.4 % (20.0-50.0) 10/22/18 04:25 Monocytes % 12.8 % (2.0-10.0) H 10/22/18 04:25 Eosinophils % 5.6 % (0.0-5.0) H 10/22/18 04:25 Basophils % 0.5 % (0.0-2.0) 10/22/18 04:25 Sodium 136 mEq/L (136-145) 10/22/18 04:25 Potassium 4.0 mEq/L (3.5-5.1) 10/22/18 04:25 Chloride 103 mEq/L (98-107) 10/22/18 04:25 Carbon Dioxide 29.5 mEq/L (21.0-31.0) 10/22/18 04:25 Anion Gap 7.5 (7.0-16.0) 10/22/18 04:25 BUN 13 mg/dL (7-25) 10/22/18 04:25 Creatinine 0.9 mg/dL (0.7-1.3) 10/22/18 04:25 Est GFR ( Amer) > 60.0 ml/min (>90) 10/22/18 04:25 Est GFR (Non-Af Amer) > 60.0 ml/min 10/22/18 04:25 BUN/Creatinine Ratio 14.4 10/22/18 04:25 Glucose 112 mg/dL (70-105) H 10/22/18 04:25 Calcium 8.8 mg/dL (8.6-10.3) 10/22/18 04:25 Total Bilirubin 0.4 mg/dL (0.3-1.0) 10/21/18 19:49 AST 19 U/L (13-39) 10/21/18 19:49 ALT 15 U/L (7-52) 10/21/18 19:49 Alkaline Phosphatase 85 U/L (34-104) 10/21/18 19:49 Troponin I < 0.01 ng/mL (0.01-0.05) L 10/21/18 19:49 Total Protein 6.6 gm/dL (6.0-8.3) 10/21/18 19:49 Albumin 3.6 gm/dL (4.2-5.5) L 10/21/18 19:49 Globulin 3.0 gm/dL 10/21/18 19:49 Albumin/Globulin Ratio 1.2 (1.0-1.8) 10/21/18 19:49 Amylase 33 U/L (29-103) 10/21/18 19:49 Lipase 28 U/L (11-82) 10/21/18 19:49 Urine Source RANDOM 10/21/18 19:35 Urine Color YELLOW 10/21/18 19:35 Urine Clarity CLEAR (CLEAR) 10/21/18 19:35 Urine pH 6.0 (4.6 - 8.0) 10/21/18 19:35 Ur Specific [place] <= 1.005 (1.005-1.030) 10/21/18 19:35 Urine Protein NEGATIVE mg/dL (NEGATIVE) 10/21/18 19:35 Urine Glucose (UA) NEGATIVE mg/dL (NEGATIVE) 10/21/18 19:35 Urine Ketones NEGATIVE mg/dL (NEGATIVE) 10/21/18 19:35 Urine Blood NEGATIVE (NEGATIVE) 10/21/18 19:35 Urine Nitrate NEGATIVE (NEGATIVE) 10/21/18 19:35 Urine Bilirubin NEGATIVE (NEGATIVE) 10/21/18 19:35 Urine Urobilinogen 0.2 E.U./dL (0.2 - 1.0) 10/21/18 19:35 Ur Leukocyte Esterase NEGATIVE (NEGATIVE) 10/21/18 19:35 Urine RBC 0-2 /hpf (0-5) H 10/21/18 19:35 Urine WBC 0-2 /hpf (0-5) 10/21/18 19:35 Ur Epithelial Cells NONE SEEN /lpf (FEW) 10/21/18 19:35 Urine Bacteria FEW /hpf (NONE SEEN) 10/21/18 19:35 Urine Opiates Screen NEGATIVE (NEGATIVE) 10/21/18 19:35 Urine Methadone Screen NEGATIVE (NEGATIVE) 10/21/18 19:35 Ur Barbiturates Screen NEGATIVE (NEGATIVE) 10/21/18 19:35 Valproic Acid 42.7 ug/mL (50.0-100.0) L 10/22/18 04:25 Ur Tricyclics Screen POSITIVE (NEGATIVE) H 10/21/18 19:35 Ur Phencyclidine Scrn NEGATIVE (NEGATIVE) 10/21/18 19:35 Amphetamines Screen NEGATIVE (NEGATIVE) 10/21/18 19:35 U Methamphetamines Scrn NEGATIVE (NEGATIVE) 10/21/18 19:35 U Benzodiazepines Scrn NEGATIVE (NEGATIVE) 10/21/18 19:35 U Cocaine Metab Screen NEGATIVE (NEGATIVE) 10/21/18 19:35 U Cannabinoids Screen NEGATIVE (NEGATIVE) 10/21/18 19:35 - Physical Exam Vitals and I&O: Vital Signs Temp 97.4 F 10/23/18 12:44 Pulse 60 10/23/18 12:44 Resp 18 10/23/18 12:44 BP 144/54 10/23/18 12:44 Pulse Ox 97 10/23/18 12:44 Intake & Output 10/22/18 10/23/18 10/23/18 18:59 06:59 18:59 Intake Total 1600 58031 596.667 Balance 1600 34660 596.667 Weight (lbs) 80.014 kg 80.286 kg Intake: Intake, IV Amount 1000 596.667 Sodium Chloride 0.45% 1, 1000 596.667 000 ml @ 50 mls/hr IV . Q20H KASSY Rx#:[id number] Oral 1600 [id number] Other: # Voids 2,000 6 # Bowel Movements 0 1 Weight Source Bedscale Bedscale Active Medications: Current Medications Benztropine Mesylate (Cogentin) 1 mg PO BID KASSY Stop: 12/21/18 08:59 Last Admin: 10/23/18 08:40 Dose: 1 mg Bupropion HCl (Wellbutrin Sr) 150 mg PO DAILY KASSY Stop: 12/21/18 08:59 Last Admin: 10/23/18 08:40 Dose: 150 mg Divalproex Sodium (Depakote Er) 500 mg PO BID KASSY; Protocol Stop: 12/21/18 08:59 Last Admin: 10/23/18 08:40 Dose: 500 mg Haloperidol (Haldol) 5 mg PO DAILY KASSY; Protocol Stop: 12/21/18 08:59 Last Admin: 10/23/18 08:40 Dose: 5 mg Sodium Chloride (Nacl 0.45%) 1,000 mls @ 50 mls/hr IV .Q20H KASSY Stop: 12/20/18 22:28 Last Admin: 10/23/18 14:13 Dose: 50 mls/hr Loperamide HCl (Imodium) 2 mg PO QID PRN PRN Reason: Diarrhea Stop: 12/21/18 02:42 Lorazepam (Ativan) 1 mg IVP Q4HR PRN; Protocol PRN Reason: Agitation Stop: 12/20/18 22:34 Physical Exam: 58 y/o male patient is aggravated and agitated. General: weak HEENT: NC/AT Neck: Supple, No JVD Lungs: CTAB Cardiovascular: RRR, Normal S1 Abdomen: soft, non-tender Extremities: clear Neurological: no change Internal Medicine Assmt/Plan - Assessment Assessment: Agitated. Schizophrenia. Hx of Htn. - Plan Plan: Continuation of care. Monitor Labs. Continue present meds as directed. Monitor vitals, Continue BP meds as directed. Monitor Diet/Nutritional support. Psych management per Psych. Fall precaution, frequent nursing rounds, and as needed restraints to prevent fall. Safety precaution. Supportive care. Continue collaborating with consulting specialists, case management and nursing team. Will Monitor patient and continue current treatment plan as ordered. Nutritional Asmnt/Malnutr-PDOC - Dietary Evaluation Malnutrition Findings (Please click <Entered> for more info): see orders.
--- NOTE | 2018-10-24 00:13 | Progress Notes ---
DATE: SUBJECTIVE: Chart was reviewed and the patient interviewed. Also discussed the patient's condition with the staff and reviewed records and labs. The patient is still anxious and still complaining of "want to leave." The patient seems bored and wants to be discharged back to his facility. At the same time, the patient is still rambling and thought processes are circumstantial and tangential. The patient is compliant with taking medications and no side effects. ASSESSMENT: The patient is still psychotic, but no major behavioral issues or problems. TREATMENT PLAN: Continue monitoring his behavior and continue same medications, and also, the patient can be treated in lower level of care if he is medically stable. JOB# [id number]
[2018-10-24] MEDS: Benztropine 1 MG TAB PO SCH ×2 (08:18→16:27)
--- NOTE | 2018-10-24 11:20 | Internal Medicine Prog Note ---
Internal Medicine Subjective - Subjective Service Date: 10/24/18 Patient seen and examined:: with staff Patient is:: awake, verbal, agitated Patient Complaints of:: other (hx of schizophrenia.) Per staff patient has:: no adverse event, no episodes of fall Internal Medicine Objective - Results Result Diagrams: 10/22/18 04:25 10/22/18 04:25 Recent Labs: Laboratory Last Values WBC 8.6 Th/cmm (4.8-10.8) 10/22/18 04:25 RBC 4.05 Mil/cmm (4.30-5.70) L 10/22/18 04:25 Hgb 14.0 gm/dL (12-16) 10/22/18 04:25 Hct 39.4 % (41.0-60) L 10/22/18 04:25 MCV 97.2 fl (80-99) 10/22/18 04:25 MCH 34.6 pg (26.0-30.0) H 10/22/18 04:25 MCHC Differential 35.5 pg (28.0-36.0) 10/22/18 04:25 RDW 15.0 % (11.5-20.0) 10/22/18 04:25 Plt Count 220 Th/cmm (150-400) 10/22/18 04:25 MPV 8.9 fl 10/22/18 04:25 Neutrophils % 45.7 % (40.0-80.0) 10/22/18 04:25 Lymphocytes % 35.4 % (20.0-50.0) 10/22/18 04:25 Monocytes % 12.8 % (2.0-10.0) H 10/22/18 04:25 Eosinophils % 5.6 % (0.0-5.0) H 10/22/18 04:25 Basophils % 0.5 % (0.0-2.0) 10/22/18 04:25 Sodium 136 mEq/L (136-145) 10/22/18 04:25 Potassium 4.0 mEq/L (3.5-5.1) 10/22/18 04:25 Chloride 103 mEq/L (98-107) 10/22/18 04:25 Carbon Dioxide 29.5 mEq/L (21.0-31.0) 10/22/18 04:25 Anion Gap 7.5 (7.0-16.0) 10/22/18 04:25 BUN 13 mg/dL (7-25) 10/22/18 04:25 Creatinine 0.9 mg/dL (0.7-1.3) 10/22/18 04:25 Est GFR ( Amer) > 60.0 ml/min (>90) 10/22/18 04:25 Est GFR (Non-Af Amer) > 60.0 ml/min 10/22/18 04:25 BUN/Creatinine Ratio 14.4 10/22/18 04:25 Glucose 112 mg/dL (70-105) H 10/22/18 04:25 Calcium 8.8 mg/dL (8.6-10.3) 10/22/18 04:25 Total Bilirubin 0.4 mg/dL (0.3-1.0) 10/21/18 19:49 AST 19 U/L (13-39) 10/21/18 19:49 ALT 15 U/L (7-52) 10/21/18 19:49 Alkaline Phosphatase 85 U/L (34-104) 10/21/18 19:49 Troponin I < 0.01 ng/mL (0.01-0.05) L 10/21/18 19:49 Total Protein 6.6 gm/dL (6.0-8.3) 10/21/18 19:49 Albumin 3.6 gm/dL (4.2-5.5) L 10/21/18 19:49 Globulin 3.0 gm/dL 10/21/18 19:49 Albumin/Globulin Ratio 1.2 (1.0-1.8) 10/21/18 19:49 Amylase 33 U/L (29-103) 10/21/18 19:49 Lipase 28 U/L (11-82) 10/21/18 19:49 Urine Source RANDOM 10/21/18 19:35 Urine Color YELLOW 10/21/18 19:35 Urine Clarity CLEAR (CLEAR) 10/21/18 19:35 Urine pH 6.0 (4.6 - 8.0) 10/21/18 19:35 Ur Specific [place] <= 1.005 (1.005-1.030) 10/21/18 19:35 Urine Protein NEGATIVE mg/dL (NEGATIVE) 10/21/18 19:35 Urine Glucose (UA) NEGATIVE mg/dL (NEGATIVE) 10/21/18 19:35 Urine Ketones NEGATIVE mg/dL (NEGATIVE) 10/21/18 19:35 Urine Blood NEGATIVE (NEGATIVE) 10/21/18 19:35 Urine Nitrate NEGATIVE (NEGATIVE) 10/21/18 19:35 Urine Bilirubin NEGATIVE (NEGATIVE) 10/21/18 19:35 Urine Urobilinogen 0.2 E.U./dL (0.2 - 1.0) 10/21/18 19:35 Ur Leukocyte Esterase NEGATIVE (NEGATIVE) 10/21/18 19:35 Urine RBC 0-2 /hpf (0-5) H 10/21/18 19:35 Urine WBC 0-2 /hpf (0-5) 10/21/18 19:35 Ur Epithelial Cells NONE SEEN /lpf (FEW) 10/21/18 19:35 Urine Bacteria FEW /hpf (NONE SEEN) 10/21/18 19:35 Urine Opiates Screen NEGATIVE (NEGATIVE) 10/21/18 19:35 Urine Methadone Screen NEGATIVE (NEGATIVE) 10/21/18 19:35 Ur Barbiturates Screen NEGATIVE (NEGATIVE) 10/21/18 19:35 Valproic Acid 42.7 ug/mL (50.0-100.0) L 10/22/18 04:25 Ur Tricyclics Screen POSITIVE (NEGATIVE) H 10/21/18 19:35 Ur Phencyclidine Scrn NEGATIVE (NEGATIVE) 10/21/18 19:35 Amphetamines Screen NEGATIVE (NEGATIVE) 10/21/18 19:35 U Methamphetamines Scrn NEGATIVE (NEGATIVE) 10/21/18 19:35 U Benzodiazepines Scrn NEGATIVE (NEGATIVE) 10/21/18 19:35 U Cocaine Metab Screen NEGATIVE (NEGATIVE) 10/21/18 19:35 U Cannabinoids Screen NEGATIVE (NEGATIVE) 10/21/18 19:35 - Physical Exam Vitals and I&O: Vital Signs Temp 96.0 F 10/24/18 08:45 Pulse 81 10/24/18 08:45 Resp 19 10/24/18 08:45 BP 122/64 10/24/18 08:45 Pulse Ox 98 10/24/18 08:45 Intake & Output 10/23/18 10/24/18 10/24/18 18:59 06:59 18:59 Intake Total 6640.361 7730 Output Total 1000 Balance 1556.667 0 Weight (lbs) 80.286 kg 80.513 kg Intake: Intake, IV Amount 596.667 Sodium Chloride 0.45% 1, 596.667 000 ml @ 50 mls/hr IV . Q20H KASS[facility] Rx#:[id number] Oral 960 1000 Output: Urine 1000 Other: # Voids 5 # Bowel Movements 1 1 Weight Source Bedscale Bedscale Active Medications: Current Medications Benztropine Mesylate (Cogentin) 1 mg PO BID KASSY Stop: 12/21/18 08:59 Last Admin: 10/24/18 08:18 Dose: 1 mg Bupropion HCl (Wellbutrin Sr) 150 mg PO DAILY KASSY Stop: 12/21/18 08:59 Last Admin: 10/24/18 08:18 Dose: 150 mg Divalproex Sodium (Depakote Er) 500 mg PO BID KASSY; Protocol Stop: 12/21/18 08:59 Last Admin: 10/24/18 08:18 Dose: 500 mg Haloperidol (Haldol) 5 mg PO DAILY KASSY; Protocol Stop: 12/21/18 08:59 Last Admin: 10/24/18 08:18 Dose: 5 mg Sodium Chloride (Nacl 0.45%) 1,000 mls @ 50 mls/hr IV .Q20H KASSY Stop: 12/20/18 22:28 Last Admin: 10/23/18 14:13 Dose: 50 mls/hr Loperamide HCl (Imodium) 2 mg PO QID PRN PRN Reason: Diarrhea Stop: 12/21/18 02:42 Lorazepam (Ativan) 1 mg IVP Q4HR PRN; Protocol PRN Reason: Agitation Stop: 12/20/18 22:34 Physical Exam: 58 y/o male patient is still aggravated and easily agitated, stating he wants to go home. General: weak HEENT: NC/AT Neck: Supple, No JVD Lungs: CTAB Cardiovascular: RRR, Normal S1 Abdomen: soft, non-tender Extremities: clear Neurological: no change Internal Medicine Assmt/Plan - Assessment Assessment: Agitated. Schizophrenia. Hx of Htn. - Plan Plan: Continuation of care. Monitor Labs. Continue present meds as directed. Monitor vitals, Continue BP meds as directed. Monitor Diet/Nutritional support. Psych management per Psych. Fall precaution, frequent nursing rounds, and as needed restraints to prevent fall. Safety precaution. Supportive care. Continue collaborating with consulting specialists, case management and nursing team. Will Monitor patient and continue present care management. Nutritional Asmnt/Malnutr-PDOC - Dietary Evaluation Malnutrition Findings (Please click <Entered> for more info): see orders.
--- NOTE | 2018-10-24 20:51 | Progress Notes ---
DATE: 10/24/2018 SUBJECTIVE: Chart was reviewed and the patient interviewed. Also discussed the patient's condition with the staff and reviewed records and labs. The patient is still anxious and he is still slightly suspicious and paranoid, at the same time, compliant with medications and cooperative. The patient also is restless and he is asking about his discharge date or when he is going to be discharged. He also still seems to be suspicious and paranoid, but no major behavioral issues. ASSESSMENT: The patient is psychotic, but no behavioral problems. TREATMENT PLAN: Continue current medications. The patient also can be treated in a fdc when medically stable by Dr. Arteaga. JOB# [id number]
== END 2018-10-24 17:50 | DRG 71 ==
LOC: ER 19:22 → MSI 22:25
PROVIDERS: ADMIT Internal Medicine; ATTEND Internal Medicine
DX: G93.40 Encephalopathy, unspecified (principal); F20.0 Paranoid schizophrenia; K29.70 Gastritis, unspecified, without bleeding; R45.1 Restlessness and agitation; I10 Essential (primary) hypertension; F29 Unspecified psychosis not due to a substance or known physiological condition; R39.15 Urgency of urination
CPT/HCPCS: 36415-UA; 80048-TC; 80053-TC; 80164-TC; 80307; 81001-TC; 82150-TC; 83690-TC; 84484-TC; 85025-TC; 93005; J7030; Z7610